=== PATIENT | female | born 1970 | race African-American/Black ===

== ENCOUNTER 2017-03-08 13:38 | Inpatient (IN) | payer OTHER ==
[2017-03-08] VITALS (8 sets, daily range): BP systolic 155–193; BP diastolic 77–106; PULSE 47–83; RESP 16–20; TEMP 97.3–98; O2SAT 94–100
[~2017-03-08] VITALS: Ht 172.7 cm; Wt 141.2 kg
[~2017-03-08 13:38] MED LIST: ALLO100T PO; CHLO25CA2 PO; FERR1TAB36 PO; K-TA10TA PO; MULTTAB67 PO; POTA10PO PO; PROT40TA PO; VITA1000 PO
[2017-03-08] MEDS ORDERED: SODIUM CHLOR 0.9% 1000 ML INJ 1,000 ML IV SCH (14:48)
--- NOTE | 2017-03-08 14:59 | PD ---
HPI Chief Complaint: Abdominal Pain Time Seen by Provider: 14:52 Travel History International Travel<30 days: No Contact w/Intl Traveler<30days: No Traveled to known affect area: No History of Present Illness HPI 46-year-old female with history of previous hernia surgeries, presents to the ER today for 2 days history of epigastric and left lower quadrant abdominal pains with nausea, chills, vomiting, and diarrhea. Pain is currently rated at 10 out of 10. She states that it started after eating a piece of chicken from [facility]. She does not reveal any sick contacts. Modifying Factors: None Associated Signs & Symptoms: Nausea, chills, vomiting, diarrhea, abdominal pain Risk Factors: None PFSH Past Medical History Anemia: Yes Cancer: No Cardiovascular Problems: Yes (HTN) Diabetes: No Diminished Hearing: No Endocrine: No Gastrointestinal Disorders: Yes (GERD, N/V DURING MENSES) Gout: Yes Genitourinary: No Hepatitis: No Hiatal Hernia: No Hypertension: Yes Immune Disorder: No Musculoskeletal: Yes (GOUT) Neurologic: No Psychiatric: No Reproductive: No Respiratory: Yes (ASTHMA) Thyroid Disease: No ?: Not : 5 Para: 5 Ovarian Cysts: Yes (r ovary removed) Tubal Ligation: Yes Past Surgical History Abdominal Surgery: Yes (HERNIA REPAIR X 2, GASTRIC SLEEVE) AICD: No Gynecologic Surgery: Yes (OOPHORECTOMY R OVARY, TUBAL LIGATION) Joint Replacement: No Pacemaker: No Thoracic Surgery: Yes ("DUCTS CLEANED OUT" EMILY BREASTS D/T MASTITIS ) Other Surgery: Yes Social History Alcohol Use: No Tobacco Use: No Substance Use: No Allergies-Medications (Allergen,Severity, Reaction): Coded Allergies: Mobic (Unverified Allergy, Intermediate, ITCHING, 03/08/17) АННА Inhibitors (Verified Allergy, Unknown, Swelling, 03/08/17) Percocet (Unverified Adverse Reaction, Intermediate, HALLUCINATIONS, ) Reported Meds & Prescriptions Reported Meds & Active Scripts Active Reported [Htn] 1 Tab PO DIRECTED Ferrous Sulfate DR (Ferrous Sulfate) 324 Mg Tabdr 324 Mg PO BID Protonix (Pantoprazole Sodium) 40 Mg Tab 40 Mg PO DAILY Multiple Vitamin 1 Tab 1 Tab PO DAILY Vitamin D-1000 (Cholecalciferol) 1,000 Unit Tab 1,000 Units PO DAILY Allopurinol 100 Mg Tab 100 Mg PO BID Review of Systems Except as stated in HPI: all other systems reviewed are Neg Physical Exam Narrative GENERAL: Well-developed obese middle age -[place] female patient currently in mild distress. SKIN: Focused skin assessment warm/dry. HEAD: Atraumatic. Normocephalic. EYES: Pupils equal and round. No scleral icterus. No injection or drainage. ENT: No nasal bleeding or discharge. Mucous membranes pink and moist. NECK: Trachea midline. No JVD. CARDIOVASCULAR: Regular rate and rhythm. No murmur appreciated. RESPIRATORY: No accessory muscle use. Clear to auscultation. Breath sounds equal bilaterally. GASTROINTESTINAL: Abdomen soft, epigastric and left lower quadrant tenderness without guarding or rebound, obese, nondistended. Hepatic and splenic margins not palpable. MUSCULOSKELETAL: No obvious deformities. No clubbing. No cyanosis. No edema. NEUROLOGICAL: Awake and alert. No obvious cranial nerve deficits. Motor grossly within normal limits. Normal speech. PSYCHIATRIC: Appropriate mood and affect; insight and judgment normal. Data Data Last Documented VS Vital Signs Date Time Temp Pulse Resp B/P Pulse Ox O2 Delivery O2 Flow Rate FiO2 03/08/17 15:34 52 16 155/96 98 Room Air 03/08/17 13:41 98.0 Orders Complete Blood Count With Diff (03/08/17 14:48) Comprehensive Metabolic Panel (03/08/17 14:48) Lipase (03/08/17 14:48) Urinalysis - C+S If Indicated (03/08/17 14:48) Iv Access Insert/Monitor (03/08/17 14:48) Ecg Monitoring (03/08/17 14:48) Oximetry (03/08/17 14:48) Ondansetron Inj (Zofran Inj) (03/08/17 15:00) Sodium Chlor 0.9% 1000 Ml Inj (Ns 1000 M (03/08/17 14:48) Sodium Chloride 0.9% Flush (Ns Flush) (03/08/17 15:00) Electrocardiogram (03/08/17 14:53) Ct Abd/Pel W Iv Contrast(Rout) (03/08/17 14:53) Hydromorphone Pf Inj (Dilaudid Pf Inj) (03/08/17 15:00) Iohexol 350 Inj (Omnipaque 350 Inj) (03/08/17 16:24) Hydromorphone Pf Inj (Dilaudid Pf Inj) (03/08/17 17:45) Labs Laboratory Tests Test 03/08/17 15:00 White Blood Count 9.6 TH/MM3 Red Blood Count 4.89 MIL/MM3 Hemoglobin 11.7 GM/DL Hematocrit 37.7 % Mean Corpuscular Volume 77.1 FL Mean Corpuscular Hemoglobin 23.9 PG Mean Corpuscular Hemoglobin 31.1 % Concent Red Cell Distribution Width 19.7 % Platelet Count 431 TH/MM3 Mean Platelet Volume 8.1 FL Neutrophils (%) (Auto) 84.4 % Lymphocytes (%) (Auto) 9.8 % Monocytes (%) (Auto) 3.0 % Eosinophils (%) (Auto) 0.5 % Basophils (%) (Auto) 2.3 % Neutrophils # (Auto) 8.2 TH/MM3 Lymphocytes # (Auto) 0.9 TH/MM3 Monocytes # (Auto) 0.3 TH/MM3 Eosinophils # (Auto) 0.0 TH/MM3 Basophils # (Auto) 0.2 TH/MM3 CBC Comment AUTO DIFF Differential Comment AUTO DIFF CONFIRMED Platelet Estimate NORMAL Platelet Morphology Comment NORMAL Target Cells 1+ Ovalocytes 1+ Sodium Level 139 MEQ/L Potassium Level 4.4 MEQ/L Chloride Level 104 MEQ/L Carbon Dioxide Level 26.7 MEQ/L Anion Gap 8 MEQ/L Blood Urea Nitrogen 9 MG/DL Creatinine 0.74 MG/DL Estimat Glomerular Filtration 102 ML/MIN Rate Random Glucose 99 MG/DL Calcium Level 9.6 MG/DL Total Bilirubin 0.4 MG/DL Aspartate Amino Transf 25 U/L (AST/SGOT) Alanine Aminotransferase 13 U/L (ALT/SGPT) Alkaline Phosphatase 84 U/L Total Protein 8.5 GM/DL Albumin 3.1 GM/DL Lipase 71 U/L [facility] Medical Decision Making Medical Screen Exam Complete: Yes Emergency Medical Condition: Yes Medical Record Reviewed: Yes Interpretation(s) EKG shows sinus bradycardia rate of 46 bpm with no signs of acute ST-T changes. Laboratory Tests Test 03/08/17 15:00 Mean Corpuscular Volume 77.1 FL (80.0-100.0) Mean Corpuscular Hemoglobin 23.9 PG (27.0-34.0) Mean Corpuscular Hemoglobin 31.1 % Concent (32.0-36.0) Red Cell Distribution Width 19.7 % (11.6-17.2) Neutrophils (%) (Auto) 84.4 % (16.0-70.0) Basophils (%) (Auto) 2.3 % (0.0-2.0) Neutrophils # (Auto) 8.2 TH/MM3 (1.8-7.7) Lymphocytes # (Auto) 0.9 TH/MM3 (1.0-4.8) Target Cells 1+ (NORMAL) Ovalocytes 1+ (NORMAL) Total Protein 8.5 GM/DL (6.4-8.2) Albumin 3.1 GM/DL (3.4-5.0) Lipase 71 U/L (73-393) Last 24 hours Impressions Abdomen/Pelvis CT 03/08/17 2263 Signed Impressions: Service Date/Time: Thursday, March 08, 2017 16:09 - CONCLUSION: Small bowel obstruction which is probably partial not present on the prior examination. Ezio Ortiz MD Differential Diagnosis Nausea, vomiting, diarrhea, chillsgastroenteritis versus obstruction versus dehydration versus metabolic issues versus pancreatitis versus other acute intra -abdominal processes Narrative Course Patient's heart rate slows down to the 40s intermittently. However, she does not appear to be symptomatic during these episodes. Her abdomen is tender to palpation of the epigastrium and left lower quadrant. She has required multiple doses of pain medications. CAT scan shows a partial small bowel obstruction. At this point, my plan would be to admit her as an observation for further evaluation. Case was discussed with Dr. Oakley for admission. Diagnosis Primary Impression: Small bowel obstruction Additional Impression: Bradycardia Admitting Information Admitting Physician Requests: Admit Adali Figueroa MD Mar 08, 2017 14:59
[2017-03-08] MEDS ORDERED: SODIUM CHLORIDE 0.9% FLUSH 10 ML FLUSH IV FLUSH PRN ×2 (15:00→18:45)
[2017-03-08] MEDS ORDERED: ONDANSETRON HCL 4 MG/2 ML VIAL IVP ONE (15:00)
[2017-03-08] MEDS ORDERED: HYDROmorphone HCL PF 1 MG/ML VIAL IV PUSH ONE ×2 (15:00→17:45)
[2017-03-08] MEDS ORDERED: FERR324T4 PO (15:20)
[2017-03-08] MEDS ORDERED: AMAN100T PO (15:20)
[2017-03-08] MEDS ORDERED: HTN PO (15:21)
[2017-03-08 15:27] LABS: AUTOMATED NEUTROPHIL # 8.2 TH/MM3 (1.8-7.7); BASOPHIL # 0.2 TH/MM3 (0-0.2); BASOPHIL % 2.3 % (0.0-2.0); EOSINOPHIL % 0.5 % (0.0-4.0); HEMATOCRIT 37.7 % (35.0-46.0); LYMPH % 9.8 % (9.0-44.0); LYMPHOCYTE # 0.9 TH/MM3 (1.0-4.8); MEAN CELL VOLUME 77.1 FL (80.0-100.0); MEAN CORPUSCULAR HEMOGLOBIN 23.9 PG (27.0-34.0); MEAN CORPUSCULAR HGB CONC 31.1 % (32.0-36.0); NEUT % 84.4 % (16.0-70.0); PLATELET COUNT 431 TH/MM3 (150-450); RED BLOOD COUNT 4.89 MIL/MM3 (4.00-5.30); RED CELL DISTRIBUTION WIDTH 19.7 % (11.6-17.2); WHITE BLOOD COUNT 9.6 TH/MM3 (4.0-11.0)
[2017-03-08 15:37] LABS: CHLORIDE 104 MEQ/L (98-107); SODIUM (NA) 139 MEQ/L (136-145)
[2017-03-08 15:40] LABS: ANION GAP 8 MEQ/L (5-15); BICARBONATE 26.7 MEQ/L (21.0-32.0); BLOOD UREA NITROGEN 9 MG/DL (7-18)
[2017-03-08 15:43] LABS: ALT (GPT) 13 U/L (10-53); AST (GOT) 25 U/L (15-37); GLOMERULAR FILTRATION RATE 102 ML/MIN (>89); POTASSIUM 4.4 MEQ/L (3.5-5.1)
[2017-03-08 15:45] LABS: TOTAL BILIRUBIN ADULT 0.4 MG/DL (0.2-1.0)
[2017-03-08 15:46] LABS: ALKALINE PHOSPHATASE 84 U/L (45-117)
[2017-03-08 15:47] LABS: HEMO FLAGS AUTO DIFF
[2017-03-08] MEDS ORDERED: IOHEXOL 350 MG/ML 10 ML VIAL (for RAD DIAG) IV ONE (16:24)
[2017-03-08 16:25] LABS: OVALOCYTES 1+ (NORMAL); PLATELET ESTIMATE SMEAR NORMAL (NORMAL); PLATELET MORPHOLOGY NORMAL (NORMAL); SCAN/DIFF AUTO DIFF CONFIRMED; TARGET CELLS 1+ (NORMAL)
--- NOTE | 2017-03-08 16:45 | RADRPT ---
EXAM DATE/TIME: 03/08/2017 16:09 [facility] COMPARISON: CT ABDOMEN & PELVIS W CONTRAST, June 19, 2016, 23:13. INDICATIONS : Left sided abdomen pain with nausea and vomiting. IV CONTRAST: 95 cc Omnipaque 350 (iohexol) IV ORAL CONTRAST: No oral contrast ingested. RADIATION DOSE: 22.38 CTDIvol (mGy) MEDICAL HISTORY : Hypertension. SURGICAL HISTORY : Tubal ligation. Hernia repair. Right oopherectomy. ENCOUNTER: Initial ACUITY: 1 day PAIN SCALE: 3/10 LOCATION: Left abdomen TECHNIQUE: Volumetric scanning of the abdomen and pelvis was performed. Using automated exposure control and ad justment of the mA and/or kV according to patient size, radiation dose was kept as low as reasonably achievable to obtain optimal diagnostic quality images. DICOM format image data is available electro nically for review and comparison. FINDINGS: CT Abdomen: The liver, spleen, pancreas, kidneys, adrenals are unremarkable. There is no evidence for any appreciable pathological adenopathy. Tiny fluid is present in the anterior perihepatic space. T here are multiple distended loops of small bowel on the left side of the abdomen not present previous ly and distal jejunal loops and ileal loops are decompressed characteristic of small bowel obstructio n. Multiple simple cysts are present in the kidneys the largest on the right measures 2.[address] pelvis: There is no evidence for mass, abscess formation, or any significant adenopathy within the pelvis. There is slight nonspecific thickening of the endometrial stripe ostomy site in the mesial f luid. CONCLUSION: Small bowel obstruction which is probably partial not present on the prior examulysses Ortiz MD on March 08, 2017 at 16:40 Board Certified Radiologist. This report was verified electronically.
[2017-03-08 18:09] LABS: BLOOD, URINE NEG (NEG); GLUCOSE,URINE NEG (NEG); KETONE, URINE 40 mg/dL (NEG); NITRITE,URINE NEG (NEG); PH, URINE 6.5 (5.0-8.5)
[2017-03-08 18:19] LABS: METHOD OF COLLECTION VOIDED; URINE COLOR YELLOW (YELLW/STRAW)
[2017-03-08 18:20] LABS: COMMENT (UR) CULT NOT INDICATED; CULTURE IF INDICATED CULT NOT INDICATED; MUCUS URINE RARE /lpf (OCC); SQUAMOUS EPITHELIAL CELL URINE 0-2 /hpf (0-5); WBC, URINE 0-2 /hpf (0-5)
[2017-03-08] MEDS ORDERED: NALOXONE HCL 0.4 MG/ML AMP IV PRN (18:45)
[2017-03-08] MEDS ORDERED: BISACODYL 10 MG SUPP RECTAL PRN (18:45)
[2017-03-08] MEDS ORDERED: SENNOSIDES 8.6 MG TAB PO PRN (18:45)
[2017-03-08] MEDS ORDERED: MAGNESIUM HYDROXIDE SUSP 30 ML CUP PO PRN (18:45)
[2017-03-08] MEDS ORDERED: AMLO2.5T PO (18:45)
[2017-03-08] MEDS ORDERED: cloNIDine HCL 0.1 MG TAB PO PRN (18:45)
[2017-03-08] MEDS ORDERED: LACTULOSE SYRUP 20 GM/30 ML CUP PO PRN (18:45)
--- NOTE | 2017-03-08 18:59 | HHI.HP ---
HPI Service [facility] Hospitalists Primary Care Physician Castro Hernandez MD Admission Diagnosis small bowel obstruction/bradycardia Chief Complaint: 2days of abdominal pain nausea and vomit Travel History International Travel<30 Days: No Contact w/Intl Traveler <30 Da: No Traveled to Known Affected Are: No History of Present Illness 46 y/o black female presents to er with 2 days progressive abdominal pain with constant nausea and vomit ,has been unable to keep anything down,patient did have small piece of chicken before episodes and did have sleve procedure done few years ago. In er had CT scan which showed small bowel partial obstruction will admit to observation pain and nausea control. Review of Systems Gastrointestinal: COMPLAINS OF: Abdominal pain, GERD, Nausea, Vomiting Past Family Social History Past Medical History hypertension,gout gerd Past Surgical History gastric sleve few years ago Reported Medications norvasc unsure of dose ,allopurinol ,protonix Allergies: Coded Allergies: Mobic (Unverified Allergy, Intermediate, ITCHING, 03/08/17) АННА Inhibitors (Verified Allergy, Unknown, Swelling, 03/08/17) Percocet (Unverified Adverse Reaction, Intermediate, HALLUCINATIONS, ) Social History NS,ND Physical Exam Vital Signs Vital Signs Date Time Temp Pulse Resp B/P Pulse Ox O2 Delivery O2 Flow Rate FiO2 03/08/17 17:45 47 16 193/80 100 Room Air 03/08/17 15:34 52 16 155/96 98 Room Air 03/08/17 15:02 100 Room Air 03/08/17 13:41 98.0 61 20 165/106 100 Physical Exam GENERAL: This is a well-nourished, well-developed patient, in no apparent distress. SKIN: No rashes, ecchymoses or lesions. Cool and dry. HEAD: Atraumatic. Normocephalic. No temporal or scalp tenderness. EYES: Pupils equal round and reactive. Extraocular motions intact. No scleral icterus. No injection or drainage. ENT: Nose without bleeding, purulent drainage or septal hematoma. Throat without erythema, tonsillar hypertrophy or exudate. Uvula midline. Airway patent. NECK: Trachea midline. No JVD or lymphadenopathy. Supple, nontender, no meningeal signs. CARDIOVASCULAR: Regular rate and rhythm without murmurs, gallops, or rubs. RESPIRATORY: Clear to auscultation. Breath sounds equal bilaterally. No wheezes , rales, or rhonchi. GASTROINTESTINAL: Abdomen tender rt and left upper and lower quadrants, nondistended. No hepato-splenomegaly, or palpable masses. No guarding. MUSCULOSKELETAL: Extremities without clubbing, cyanosis, or edema. No joint tenderness, effusion, or edema noted. No calf tenderness. Negative Homans sign bilaterally. NEUROLOGICAL: Awake and alert. Cranial nerves II through XII intact. Motor and sensory grossly within normal limits. Five out of 5 muscle strength in all muscle groups. Normal speech. Laboratory Last 24 hours Impressions Abdomen/Pelvis CT 03/08/17 1453 Signed Impressions: Service Date/Time: Wednesday, March 08, 2017 16:09 - CONCLUSION: Small bowel obstruction which is probably partial not present on the prior examination. Ezio Ortiz MD Laboratory Tests Test 03/08/17 03/08/17 15:00 17:40 White Blood Count 9.6 Red Blood Count 4.89 Hemoglobin 11.7 Hematocrit 37.7 Mean Corpuscular Volume 77.1 Mean Corpuscular Hemoglobin 23.9 Mean Corpuscular Hemoglobin 31.1 Concent Red Cell Distribution Width 19.7 Platelet Count 431 Mean Platelet Volume 8.1 Neutrophils (%) (Auto) 84.4 Lymphocytes (%) (Auto) 9.8 Monocytes (%) (Auto) 3.0 Eosinophils (%) (Auto) 0.5 Basophils (%) (Auto) 2.3 Neutrophils # (Auto) 8.2 Lymphocytes # (Auto) 0.9 Monocytes # (Auto) 0.3 Eosinophils # (Auto) 0.0 Basophils # (Auto) 0.2 CBC Comment AUTO DIFF Differential Comment AUTO DIFF CONFIRMED Platelet Estimate NORMAL Platelet Morphology Comment NORMAL Target Cells 1+ Ovalocytes 1+ Sodium Level 139 Potassium Level 4.4 Chloride Level 104 Carbon Dioxide Level 26.7 Anion Gap 8 Blood Urea Nitrogen 9 Creatinine 0.74 Estimat Glomerular Filtration 102 Rate Random Glucose 99 Calcium Level 9.6 Total Bilirubin 0.4 Aspartate Amino Transf 25 (AST/SGOT) Alanine Aminotransferase 13 (ALT/SGPT) Alkaline Phosphatase 84 Total Protein 8.5 Albumin 3.1 Lipase 71 Urine Collection Type VOIDED Urine Color YELLOW Urine Turbidity CLEAR Urine pH 6.5 Urine Specific [place] GREATER THAN 1.035 Urine Protein NEG Urine Glucose (UA) NEG Urine Ketones 40 Urine Occult Blood NEG Urine Nitrite NEG Urine Bilirubin NEG Urine Leukocyte Esterase NEG Urine WBC 0-2 Urine Squamous Epithelial 0-2 Cells Urine Mucus RARE Microscopic Urinalysis Comment CULT NOT INDICATED Result Diagram: 03/08/17 1500 03/08/17 1500 Imaging Last 24 hours Impressions Abdomen/Pelvis CT 03/08/17 1453 Signed Impressions: Service Date/Time: Wednesday, March 08, 2017 16:09 - CONCLUSION: Small bowel obstruction which is probably partial not present on the prior examination. Ezio Ortiz MD Course in er started on pain medications Assessment and Plan Problem List: (1) Small bowel obstruction Status: Acute Plan: IV fluid ,pain med,zofran protonix IV NPO (2) Bradycardia Status: Acute Plan: patient is slowing bradycardia will place on monitor for now (3) Hypertension Status: Chronic Plan: on norvasc with allergy to анна will use prn clonidine Assessment and Plan as above re access in am Code Status full Discussed Condition With patient Drake Martínez MD Mar 08, 2017 18:59
[2017-03-08] MEDS: SODIUM CHLOR 0.45% 1000 ML INJ 1,000 ML IV SCH (19:19)
[2017-03-08] MEDS: PANTOPRAZOLE SODIUM 40 MG VIAL IV PUSH SCH (19:20)
[2017-03-08] MEDS ORDERED: AMIL5 PO (20:40)
[2017-03-08] MEDS ORDERED: CHLO25TA2 PO (20:42)
[2017-03-08] MEDS: SODIUM CHLORIDE 0.9% FLUSH 10 ML FLUSH IV FLUSH SCH (20:52)
[2017-03-08] MEDS: FERROUS SULFATE 325 MG (65 MG ELEMENTAL IRON) TAB PO SCH (20:52)
[2017-03-08] MEDS: ALLOPURINOL 100 MG TAB PO SCH (21:06)
[2017-03-08] MEDS: ONDANSETRON HCL 4 MG/2 ML VIAL IVP PRN (21:07)
[2017-03-08] MEDS: DOCUSATE SODIUM 50 MG/SENNA 8.6 MG TAB PO SCH (21:07)
[2017-03-08] MEDS: HYDROmorphone HCL PF 1 MG/ML VIAL IV PRN (21:07)
[2017-03-09] VITALS (8 sets, daily range): BP systolic 145–180; BP diastolic 70–110; PULSE 80–92; RESP 19–20; TEMP 96.3–98.1; O2SAT 94–98
[2017-03-09] MEDS: HYDROmorphone HCL PF 1 MG/ML VIAL IV PRN ×7 (00:13→20:58)
[2017-03-09] MEDS: SODIUM CHLORIDE 0.9% FLUSH 10 ML FLUSH IV FLUSH SCH ×2 (07:53→20:50)
[2017-03-09] MEDS: DOCUSATE SODIUM 50 MG/SENNA 8.6 MG TAB PO SCH ×2 (08:31→20:51)
[2017-03-09] MEDS: CHOLECALCIFEROL (VIT D3) 1000 UNIT TAB PO SCH (08:31)
[2017-03-09] MEDS: FERROUS SULFATE 325 MG (65 MG ELEMENTAL IRON) TAB PO SCH ×2 (08:31→20:50)
[2017-03-09] MEDS: amLODIPine BESYLATE 5 MG TAB PO SCH (08:31)
[2017-03-09] MEDS: MULTIVITAMIN TAB PO SCH (08:31)
[2017-03-09] MEDS: ALLOPURINOL 100 MG TAB PO SCH ×2 (08:31→20:51)
[2017-03-09] MEDS: SODIUM CHLOR 0.45% 1000 ML INJ 1,000 ML IV SCH ×2 (08:32→21:04)
--- NOTE | 2017-03-09 10:31 | HHI.PR ---
Subjective Remarks Patient admitted with partial SBO and has been NPO ,feels a little better today still requiring hydromorph and zofran on exam abdomen is a little softer will advance diet to full liquids as tolerated. Objective Vitals GENERAL: SKIN: Warm and dry. HEAD: Atraumatic. Normocephalic. EYES: Pupils equal and round. No scleral icterus. No injection or drainage. ENT: No nasal bleeding or discharge. Mucous membranes pink and moist. NECK: Trachea midline. No JVD. CARDIOVASCULAR: Regular rate and rhythm. RESPIRATORY: No accessory muscle use. Clear to auscultation. Breath sounds equal bilaterally. GASTROINTESTINAL: Abdomen soft, mild-tender, nondistended. Hepatic and splenic margins not palpable. MUSCULOSKELETAL: Extremities without clubbing, cyanosis, or edema. No obvious deformities. NEUROLOGICAL: Awake and alert. No obvious cranial nerve deficits. Motor grossly within normal limits. Five out of 5 muscle strength in the arms and legs. Normal speech. PSYCHIATRIC: Appropriate mood and affect; insight and judgment normal. Vital Signs Date Time Temp Pulse Resp B/P Pulse Ox O2 Delivery O2 Flow Rate FiO2 03/09/17 04:00 98.1 80 20 159/96 97 03/08/17 21:37 18 03/08/17 21:00 65 03/08/17 20:35 97.3 61 20 162/87 97 03/08/17 19:23 83 16 158/77 98 Room Air 03/08/17 17:45 47 16 193/80 100 Room Air 03/08/17 15:34 52 16 155/96 98 Room Air 03/08/17 15:02 100 Room Air 03/08/17 13:41 98.0 61 20 165/106 100 Result Diagram: 03/08/17 1500 03/08/17 1500 Imaging Last 24 hours Impressions Abdomen/Pelvis CT 03/08/17 9916 Signed Impressions: Service Date/Time: Wednesday, March 08, 2017 16:09 - CONCLUSION: Small bowel obstruction which is probably partial not present on the prior examination. Ezio Ortiz MD A/P Problem List: (1) Small bowel obstruction Status: Acute Plan: IV fluid ,pain med,zofran protonix IV will advabnce to full liquids (2) Bradycardia Status: Acute Plan: patient is slowing bradycardia will place on monitor stable at present (3) Hypertension Status: Chronic Plan: on norvasc with allergy to paulino will use prn clonidine Assessment and Plan as above re check later Drake Martínez MD Mar 09, 2017 10:31
--- NOTE | 2017-03-09 17:44 | RADRPT ---
EXAM DATE/TIME: 03/09/2017 17:21 [facility] COMPARISON: No previous studies available for comparison. INDICATIONS : Distention. MEDICAL HISTORY : Hypertension. SURGICAL HISTORY : Tubal ligation. Hernia repair. Right oopherectomy. ENCOUNTER: Subsequent ACUITY: 2 days PAIN SCORE: 4/10 LOCATION: Abdomen, all quadrants. FINDINGS: Supine view of the abdomen was performed. The abdominal bowel gas pattern is normal. No abnormal ma sses, calcifications, or organomegaly is seen. The osseous structures are unremarkable. CONCLUSION: Normal examination. Anthony Lobato MD on March 09, 2017 at 17:42 Board Certified Radiologist. This report was verified electronically.
--- NOTE | 2017-03-09 19:58 | EKG ---
Date Performed: 03/08/2017 Time Performed: 15:00:29 PTAGE: 46 years EKG: SINUS BRADYCARDIA BORDERLINE ECG PREVIOUS TRACING : 08/10/2016 09.44 Since previous tracing, no significant change noted DOCTOR: Juan C Clayton Interpretating Date/Time 03/09/2017 19:57:02
[2017-03-09] MEDS: PANTOPRAZOLE SODIUM 40 MG VIAL IV PUSH SCH (20:50)
[2017-03-09] MEDS ORDERED: SIMETHICONE 125 MG CHEWABLE TAB PO PRN (23:15)
[2017-03-10] VITALS: BP 161/99; PULSE 85; RESP 20; TEMP 98.4; O2SAT 98
[2017-03-10] MEDS: HYDROmorphone HCL PF 1 MG/ML VIAL IV PRN ×5 (00:24→15:43)
[2017-03-10 04:00] VITALS: BP 143/89; PULSE 84; RESP 20; TEMP 97.4; O2SAT 98
[2017-03-10 06:18] LABS: ANION GAP 7 MEQ/L (5-15); BICARBONATE 28.6 MEQ/L (21.0-32.0); BLOOD UREA NITROGEN 10 MG/DL (7-18); CHLORIDE 101 MEQ/L (98-107); GLOMERULAR FILTRATION RATE 140 ML/MIN (>89); POTASSIUM 3.3 MEQ/L (3.5-5.1); SODIUM (NA) 137 MEQ/L (136-145)
[2017-03-10 07:00] VITALS: PULSE 91
[2017-03-10 08:00] VITALS: BP 115/95; PULSE 94; RESP 20; TEMP 97.6; O2SAT 95
[2017-03-10] MEDS: SODIUM CHLORIDE 0.9% FLUSH 10 ML FLUSH IV FLUSH SCH (09:00)
[2017-03-10] MEDS: DOCUSATE SODIUM 50 MG/SENNA 8.6 MG TAB PO SCH ×2 (09:28→21:00)
[2017-03-10] MEDS: FERROUS SULFATE 325 MG (65 MG ELEMENTAL IRON) TAB PO SCH ×2 (09:28→21:00)
[2017-03-10] MEDS: ALLOPURINOL 100 MG TAB PO SCH ×2 (09:28→21:00)
[2017-03-10] MEDS: CHOLECALCIFEROL (VIT D3) 1000 UNIT TAB PO SCH (09:28)
[2017-03-10] MEDS: amLODIPine BESYLATE 5 MG TAB PO SCH (09:28)
[2017-03-10] MEDS: MULTIVITAMIN TAB PO SCH (09:28)
[2017-03-10] MEDS: SODIUM CHLOR 0.45% 1000 ML INJ 1,000 ML IV SCH (09:32)
[2017-03-10] MEDS ORDERED: DIATRIZOATE MEGLUM/DIATRIZOATE SOD 9 ML CUP PO ONE (10:15)
[2017-03-10] MEDS ORDERED: 1/2 NS + KCL 20 MEQ INJ 1,000 ML IV SCH (10:15)
--- NOTE | 2017-03-10 10:17 | HHI.PR ---
Subjective Remarks Patient admitted with SBO and still has not passed any gas with abdominal pain and nausea has problems tolerating liquids KUB was unremarkable will recheck CT abdomen and will consult Dr. Tyler general surgery for evaluation. Objective Vitals GENERAL: SKIN: Warm and dry. HEAD: Atraumatic. Normocephalic. EYES: Pupils equal and round. No scleral icterus. No injection or drainage. ENT: No nasal bleeding or discharge. Mucous membranes pink and moist. NECK: Trachea midline. No JVD. CARDIOVASCULAR: Regular rate and rhythm. RESPIRATORY: No accessory muscle use. Clear to auscultation. Breath sounds equal bilaterally. GASTROINTESTINAL: Abdomen soft, tender, nondistended. Hepatic and splenic margins not palpable. MUSCULOSKELETAL: Extremities without clubbing, cyanosis, or edema. No obvious deformities. NEUROLOGICAL: Awake and alert. No obvious cranial nerve deficits. Motor grossly within normal limits. Five out of 5 muscle strength in the arms and legs. Normal speech. PSYCHIATRIC: Appropriate mood and affect; insight and judgment normal. Vital Signs Date Time Temp Pulse Resp B/P Pulse Ox O2 Delivery O2 Flow Rate FiO2 03/10/17 08:01 18 03/10/17 08:00 97.6 94 20 115/95 95 03/10/17 04:00 97.4 84 20 143/89 98 03/10/17 00:00 98.4 85 20 161/99 98 03/09/17 23:00 92 03/09/17 23:00 86 20 148/98 96 03/09/17 20:00 96.9 91 20 166/110 95 03/09/17 18:46 03/09/17 16:15 96.3 87 19 158/70 98 03/09/17 15:21 92 03/09/17 12:07 97.8 87 19 145/97 95 03/09/17 11:14 03/09/17 03/09/17 03/10/17 15:00 23:00 07:00 Intake Total 700 ml 240 ml Balance 700 ml 240 ml Intake Oral 240 ml IV Total 700 ml # Voids 4 Result Diagram: 03/08/17 1500 03/10/17 0545 Imaging Last 24 hours Impressions Abdomen/Pelvis CT 03/08/17 1453 Signed Impressions: Service Date/Time: Wednesday, March 08, 2017 16:09 - CONCLUSION: Small bowel obstruction which is probably partial not present on the prior examination. Ezio Ortiz MD A/P Problem List: (1) Small bowel obstruction Status: Acute Plan: IV fluid ,pain med,zofran protonix IV problems with full liquids KUB negative but still no gas and continues with abdinal pain and nausea will repeat CT abdomen and consult general surgery ,Patient did have sleve procedure in past. (2) Bradycardia Status: Acute Plan: patient is slowing bradycardia will place on monitor stable at present (3) Hypertension Status: Chronic Plan: on norvasc with allergy to paulino will use prn clonidine Assessment and Plan as above re check later Drake Martínez MD Mar 10, 2017 10:17
[2017-03-10] MEDS ORDERED: IOHEXOL 350 MG/ML 10 ML VIAL (for RAD DIAG) IV ONE (11:04)
[2017-03-10] MEDS: ONDANSETRON HCL 4 MG/2 ML VIAL IVP PRN (11:23)
--- NOTE | 2017-03-10 11:25 | RADRPT ---
EXAM DATE/TIME: 03/10/2017 10:36 [facility] COMPARISON: CT ABDOMEN & PELVIS W CONTRAST, March 08, 2017, 16:09. INDICATIONS : Status of small bowel obstruction. IV CONTRAST: 95 cc Omnipaque 350 (iohexol) IV ORAL CONTRAST: No oral contrast ingested. RADIATION DOSE: 22.36 CTDIvol (mGy) MEDICAL HISTORY : Hypertension. Gastroesophageal reflux disease. SURGICAL HISTORY : Gastric bypass. Tubal ligation.Right oopherectomy. Hernia repair. ENCOUNTER: Subsequent ACUITY: 3 days PAIN SCALE: 6/10 LOCATION: abdomen/pelvis TECHNIQUE: Volumetric scanning of the abdomen and pelvis was performed. Using automated exposure control and ad justment of the mA and/or kV according to patient size, radiation dose was kept as low as reasonably achievable to obtain optimal diagnostic quality images. DICOM format image data is available electro nically for review and comparison. FINDINGS: LOWER LUNGS: Bibasilar atelectasis which is new from the prior study. LIVER: Homogeneous density without lesion. There is no dilation of the biliary tree. Multiple small gallst ones are seen layering within the gallbladder. These are highlighted secondary to vicarious excretion of contrast into the gallbladder. They do not appear calcified. The gallbladder is at the upper rang e of normal in terms of size. No gallbladder wall thickening appreciated. SPLEEN: Normal size without lesion. PANCREAS: Within normal limits. KIDNEYS: Normal in size and shape. There is no mass, stone or hydronephrosis. Small bilateral cortical renal cysts which were previously described. These are stable. ADRENAL GLANDS: Within normal limits. VASCULAR: There is no aortic aneurysm. BOWEL/MESENTERY: Worsening dilatation of the small bowel. Small bowel reaches a maximum diameter of 3.9 cm. There are loops of nondilated small bowel within the anterior mid peritoneal cavity. These are projecting just posterior to a prior ventral hernia repair. A caliber change occurs just proximal to the small bowel loops. A small volume of ascites. No free air. ABDOMINAL WALL: Within normal limits. RETROPERITONEUM: There is no lymphadenopathy. BLADDER: No wall thickening or mass. REPRODUCTIVE: Within normal limits. INGUINAL: There is no lymphadenopathy or hernia. MUSCULOSKELETAL: Within normal limits for patient age. CONCLUSION: 1. Worsening dilatation of the small bowel consistent with a distal small bowel obstruction. There is a caliber change associated with the small bowel within the anterior mid peritoneal cavity but witho ut obstructing etiology observed. 2. Small volume ascites. 3. Cholelithiasis. 4. Bibasilar atelectasis. 5. Prior ventral hernia repair without recurrent hernia. Amando Ross Jr., MD on March 10, 2017 at 11:18 Board Certified Radiologist. This report was verified electronically.
[2017-03-10] MEDS ORDERED: NEOSTIGMINE 3 MG/3 ML SYR IV ONE (12:00)
[2017-03-10] MEDS ORDERED: PROPOFOL 200 MG/20 ML AMP IV ONE (12:00)
[2017-03-10] MEDS ORDERED: LACTATED RINGER'S 1000 ML INJ 3,000 ML IV ONE (12:00)
[2017-03-10] MEDS ORDERED: ONDANSETRON HCL 4 MG/2 ML VIAL IV PUSH ONE (12:00)
[2017-03-10] MEDS ORDERED: PHENYLEPH/NS 1000 MCG/10 ML SYR IV ONE (12:00)
[2017-03-10 12:40] LABS: ALKALINE PHOSPHATASE 65 U/L (45-117); ALT (GPT) 10 U/L (10-53); AST (GOT) 12 U/L (15-37); TOTAL BILIRUBIN ADULT 0.3 MG/DL (0.2-1.0)
[2017-03-10 13:47] VITALS: BP 137/94; PULSE 95; RESP 18; TEMP 96.9; O2SAT 94
[2017-03-10 15:00] VITALS: PULSE 92
[2017-03-10] MEDS ORDERED: FAMOTIDINE 20 MG/2 ML VIAL ONE (17:27)
[2017-03-10] MEDS ORDERED: ceFAZolin 2 GM PREMIX 50 ML ONE (17:29)
[2017-03-10] MEDS ORDERED: ceFAZolin INJ 1,000 MG VIAL IV ONE (18:00)
[2017-03-10] MEDS ORDERED: BUPIVACAINE/EPINEPHRINE 0.5% PF 10 ML VIAL INFIL ONE (18:34)
[2017-03-10] MEDS ORDERED: MIDAZOLAM HCL 2 MG/2 ML VIAL ONE (19:05)
[2017-03-10] MEDS ORDERED: fentaNYL CITRATE 250 MCG/5 ML AMP ONE ×2 (19:05)
[2017-03-10] MEDS ORDERED: ACETAMINOPHEN 1000 MG/100 ML VIAL IV ONE (21:08)
[2017-03-10] MEDS ORDERED: NALOXONE HCL 0.4 MG/ML AMP IV PRN (21:30)
[2017-03-10] MEDS ORDERED: Post-op Orders (for Pharmacy) MISC XX ONE (21:30)
[2017-03-10] MEDS ORDERED: diphenhydrAMINE HCL 25 MG CAP PO PRN (21:30)
[2017-03-10] MEDS: PCA - TOTAL MG MORPHINE DELIVERED PER SHIFT SCH (22:00)
[2017-03-10] MEDS: metroNIDAZOLE 500 MG INJ 100 ML IV SCH (22:00)
[2017-03-10] MEDS: SODIUM CHLOR 0.9% 1000 ML INJ 1,000 ML IV SCH (22:00)
--- NOTE | 2017-03-10 22:01 | RADRPT ---
EXAM DATE/TIME: 03/10/2017 21:33 [facility] COMPARISON: No previous studies available for comparison. INDICATIONS : Central line placement. MEDICAL HISTORY : Hypertension. SURGICAL HISTORY : Tubal ligation. Hernia repair. Right oopherectomy. ENCOUNTER: Initial ACUITY: 1 day PAIN SCORE: 0/10 LOCATION: Bilateral chest FINDINGS: Right jugular line tip overlies the expected location of the right atrium. There is patchy airspace d isease identified on the left with cardiomegaly. NG tube is present and the distal tip at the expecte d location of the esophagogastric junction/distal esophagus. CONCLUSION: Right jugular line and NG tube as above. Mando Mera MD on March 10, 2017 at 21:59 Board Certified Radiologist. This report was verified electronically.
[2017-03-10] MEDS ORDERED: *morphine SULFATE 8 MG/ML PERIprocedure ONLY ONE (22:11)
[2017-03-10] MEDS: PANTOPRAZOLE SODIUM 40 MG VIAL IV PUSH SCH (22:19)
[2017-03-10] MEDS: MORPHINE SULFATE 30 MG/30 ML PCA IV SCH (22:21)
--- NOTE | 2017-03-10 22:21 | MB ---
cc: MARIA D MESA M.D. DATE OF CONSULTATION 03/10/17 1970 HISTORY OF PRESENT ILLNESS This is a 46-year-old black lady with multiple abdominal surgeries who was admitted to [facility] two days prior with a complaint of abdominal pain, nausea and vomiting. The patient states the pain started a day prior to presentation. That was the last time she passed gas or had a bowel movement. Her CAT scan performed on admission reveals findings concerning for bowel obstruction. She was monitored without improvement. Repeat CAT scan today shows increased dilation of bowel. As a result, surgical consult was requested. The patient continues with abdominal pain, continues with arthritis. PAST MEDICAL HISTORY Gastroesophageal reflux disease PAST SURGICAL HISTORY 1. Sleeve gastrectomy 2. Oophorectomy 3. Multiple abdominal wall hernia repairs MEDICATIONS At home, can be obtained from medical records. ALLERGIES MOBIC АННА INHIBITORS PERCOCET. FAMILY HISTORY Noncontributory. SOCIAL HISTORY She does not smoke. PHYSICAL EXAMINATION GENERAL: She is laying in bed in no acute distress. HEENT: The pupils are equal and reactive. The trachea is midline. LUNGS: Respirations clear. CARDIOVASCULAR: Regular. GASTROINTESTINAL: Distended. Well-healed midline scar. No hernia palpated. positive tenderness in the left lower quadrant. MUSCULOSKELETAL: No deformities. NEUROLOGIC: Nonfocal. ASSESSMENT This is a patient with a bowel obstruction worsening, failed conservative management. PLAN Take the patient to the operating room for laparoscopy with lysis of adhesion, possible laparotomy, possible bowel resection. The risk and benefits are explained to the patient to include but not be exclusive to infection, bleeding, bowel injury, solid organ injury, technical aspects explained as well as [place] and postoperative course. The patient verbalized understanding. Consent was obtained. MD RIA Moreno/ /9:43 PM /10:14 PM
[2017-03-10] MEDS ORDERED: DO NOT ADM ANY ANTICOAGULANT DRUGS PRN (22:30)
[2017-03-10] MEDS ORDERED: NITROGLYCERIN 2% OINT 1 GM PACKET ONE (22:40)
[2017-03-10] MEDS ORDERED: LACTATED RINGER'S 1000 ML INJ 1,000 ML IV SCH (23:00)
[2017-03-10] MEDS ORDERED: NITROGLYCERIN 2% OINT 1 GM PACKET TOPICAL SCH (23:00)
[2017-03-10 23:16] LABS: CREATINE KINASE 34 U/L (26-192)
[2017-03-11] VITALS (9 sets, daily range): BP systolic 121–144; BP diastolic 60–77; PULSE 81–122; RESP 16–18; TEMP 97.8–99.3; O2SAT 92–96
[2017-03-11] MEDS ORDERED: NITROGLYCERIN 2% OINT 1 GM PACKET TOPICAL SCH (05:00)
[2017-03-11] MEDS: metroNIDAZOLE 500 MG INJ 100 ML IV SCH ×2 (05:52→14:00)
[2017-03-11] MEDS: NITROGLYCERIN 2% OINT 1 GM PACKET TOPICAL SCH ×4 (05:54→22:18)
[2017-03-11] MEDS: PCA - TOTAL MG MORPHINE DELIVERED PER SHIFT SCH ×3 (06:00→22:00)
--- NOTE | 2017-03-11 07:18 | MP ---
cc: LEN HILL DATE OF 1970 DATE OF OPERATION 03/10/2017 PREOPERATIVE DIAGNOSIS Small bowel obstruction. POSTOPERATIVE DIAGNOSIS Small bowel obstruction. PROCEDURE Laparoscopic lysis of adhesions, extensive, approximately 2 hours duration. SURGEON Len Hill MD ANESTHESIA General endotracheal anesthesia. ESTIMATED BLOOD LOSS Less than 50 cc. FINDINGS Extensive adhesions. The patient has old mesh in place with adherent bowel to the mesh. She had interloop adhesions as well as dilated bowel proximally. SPECIMEN None. COMPLICATIONS None. OPERATION The patient was brought to the operating room, placed on the operating table in supine position, bilateral sequential inflation devices placed on the lower extremities, general anesthesia instituted, Crain catheter placed, antibiotics initiated. The abdomen was prepped and draped sterilely. A point in the left upper quadrant was anesthetized with 0.25% Marcaine with epinephrine. Skin incision was made, a 5-mm OptiView port placed under direct vision, a pneumoperitoneum created. Under direct vision, a 5-mm right upper quadrant, a 5-mm right lower quadrant, a 5-mm left lower quadrant and a 5-mm left paramedian port was placed. Prior to placement of all ports the skin and peritoneum were anesthetized with 0.25% Marcaine with epinephrine. The patient was placed in Trendelenburg position, abdominal cavity inspected with findings as above. Attention was focused on adhesiolysis. Adhesions to the abdominal wall were first taken down using sharp dissection, meticulously done. The patient had dilated bowel that was identified intraperitoneal. There appeared to be bands of adhesions around the dilated bowel. Through sharp dissection as well as using the harmonic these adhesions was . The bowel was followed. The distal small bowel was decompressed but this bowel was densely adherent to intraabdominal mesh and the proximal bowel that was dilated appeared to go into this after release of adhesions proximally. It was felt that the obstructive point was released and so the operation was terminated. CO2 was released, all ports removed, all skin incisions closed with 4-0 Monocryl. The abdominal wall was cleaned and a sterile dressing placed. The patient was awakened and taken to the recovery room. MD RIA Moreno/CONG /9:46 PM /7:11 AM
[2017-03-11 07:23] LABS: BASOPHIL % 0.1 % (0.0-2.0); EOSINOPHIL % 0.1 % (0.0-4.0); HEMATOCRIT 31.4 % (35.0-46.0); HEMO FLAGS DIFF FINAL; LYMPHOCYTE # 0.6 TH/MM3 (1.0-4.8); MEAN CELL VOLUME 77.4 FL (80.0-100.0); MEAN CORPUSCULAR HEMOGLOBIN 24.9 PG (27.0-34.0); MEAN CORPUSCULAR HGB CONC 32.1 % (32.0-36.0); MONO % 8.8 % (0.0-8.0); PLATELET COUNT 378 TH/MM3 (150-450); RED BLOOD COUNT 4.06 MIL/MM3 (4.00-5.30); RED CELL DISTRIBUTION WIDTH 20.1 % (11.6-17.2); WHITE BLOOD COUNT 6.1 TH/MM3 (4.0-11.0)
[2017-03-11 07:40] LABS: ANION GAP 10 MEQ/L (5-15); BICARBONATE 26.3 MEQ/L (21.0-32.0); BLOOD UREA NITROGEN 8 MG/DL (7-18); CHLORIDE 103 MEQ/L (98-107); GLOMERULAR FILTRATION RATE 138 ML/MIN (>89); POTASSIUM 3.2 MEQ/L (3.5-5.1); SODIUM (NA) 139 MEQ/L (136-145)
[2017-03-11 07:47] LABS: CREATINE KINASE 40 U/L (26-192)
--- NOTE | 2017-03-11 07:54 | PD.CONS ---
HPI Service CV Consult Requested By Reason for Consult bradycardia Primary Care Physician aCstro Hernandez MD History of Present Illness Here with HTN admitted for nausea and vomiting and found to have SBO. She underwent laparoscopic surgery to relieve obstruction that was due to adhesions. EKG done on admission showed sinus bradycardia. Repeat ECG showed resolution of bradycardia and dynamic T wave change in the anterior leads. She denies any chest pain, shortness of breath or palpitations. Now she is in sinus tachycardia Review of Systems Consitutional: DENIES: Fatigue, Fever, Chills, Weight gain, Weight loss Eyes: DENIES: Amaurosis Fugax, Change in vision HEENT: DENIES: Lightheadedness, Change in hearing Respiratory: DENIES: See HPI, Cough, Snoring, Shortness of breath, Wheezing, Sputum production Cardiovascular: COMPLAINS OF: See HPI Gastrointestinal: DENIES: Nausea, Vomiting, Change in bowel habits, Reflux, Bloody stools, Melena Genitourinary: DENIES: Urinary incontinence, Difficulty voiding Integumentary: DENIES: Rash Neurologic: DENIES: Tingling or numbness, Memory problems, Poor Balance, Stroke symptoms Musculoskeletal: DENIES: Joint pain, Muscle pain, Limited range of motion, Back pain Psychiatric: DENIES: Anxiety, Depression, Sleep disturbances Hematologic: DENIES: Bruising tendencies, Bleeding tendencies Endocrine: DENIES: Weight gain, Weight loss, Thyroid disease Past Family Social History Allergies: Coded Allergies: Mobic (Unverified Allergy, Intermediate, ITCHING, 03/08/17) АННА Inhibitors (Verified Allergy, Unknown, Swelling, 03/08/17) Percocet (Unverified Adverse Reaction, Intermediate, HALLUCINATIONS, ) Past Medical History gout GERD Past Surgical History gastric sleeve few years ago Reported Medications Reported Meds & Active Scripts Active Reported Chlorthalidone 25 Mg Tab 25 Mg PO DAILY Amiloride (Amiloride HCl) 5 Mg Tab 5 Mg .ROUTE DAILY Ferrous Sulfate DR (Ferrous Sulfate) 324 Mg Tabdr 324 Mg PO BID Protonix (Pantoprazole Sodium) 40 Mg Tab 40 Mg PO DAILY Multiple Vitamin 1 Tab 1 Tab PO DAILY Vitamin D-1000 (Cholecalciferol) 1,000 Unit Tab 1,000 Units PO DAILY Allopurinol 100 Mg Tab 100 Mg PO BID Active Ordered Medications Current Medications Medications (Trade) Dose Ordered Sig/Patrice Route Start Time Stop Time Status Last Admin (Dilaudid Pf Inj) 0.5 mg Q3H PRN IV 03/08/17 18:45 03/10/17 15:43 (Aurora-Colace) 1 tab BID PO 03/08/17 21:00 03/10/17 09:28 (Milk Of Magnesia Liq) 30 ml Q12H PRN PO 03/08/17 18:45 (Senokot) 17.2 mg Q12H PRN PO 03/08/17 18:45 (Dulcolax Supp) 10 mg DAILY PRN RECTAL 03/08/17 18:45 (Lactulose Liq) 30 ml DAILY PRN PO 03/08/17 18:45 (Protonix Inj) 40 mg Q24H IV PUSH 03/08/17 20:00 03/10/17 22:19 (Catapres) 0.1 mg Q6H PRN PO 03/08/17 18:45 (Norvasc) 5 mg DAILY PO 03/09/17 09:00 03/10/17 09:28 (Zyloprim) 100 mg BID PO 03/08/17 21:00 03/10/17 09:28 (Vitamin D3) 1,000 units DAILY PO 03/09/17 09:00 03/10/17 09:28 (Ferrous Sulfate) 325 mg BID PO 03/08/17 21:00 03/10/17 09:28 (Theragran) 1 tab DAILY PO 03/09/17 09:00 03/10/17 09:28 Simethicone 125 mg 125 mg QID PRN PO 03/09/17 23:15 03/09/17 23:22 (NS 1000 ml Inj) 1,000 ml @ 100 mls/hr Q10H IV 03/10/17 22:00 03/10/17 22:00 (NS Flush) 2 ml UNSCH PRN IV FLUSH 03/10/17 21:30 (NS Flush) 2 ml BID IV FLUSH 03/11/17 09:00 (Zofran Inj) 4 mg Q4H PRN IV 03/10/17 21:30 Diphenhydramine HCl 25 mg 25 mg Q6H PRN PO 03/10/17 21:30 Cefazolin Sodium 1000 mg/Sodium Chloride 100 ml @ 200 mls/hr Q8H IV 03/11/17 01:00 03/11/17 17:29 03/11/17 02:49 (Flagyl 500 Mg Inj) 100 ml @ 200 mls/hr Q8H IV 03/10/17 22:00 03/11/17 14:29 03/11/17 05:52 (Narcan Inj) 0.4 mg UNSCH PRN IV 03/10/17 21:30 (Morphine 1 Mg/ ml COURTESY BOOTH CASHIER) 30 mg UNSCH IV 03/10/17 21:30 03/10/17 22:21 COURTESY BOOTH CASHIER Dosage Infused (Pha) 1 Q8HR .XX 03/10/17 22:00 03/11/17 06:00 (Lovenox Inj) 40 mg Q24H SQ 03/11/17 09:00 Miscellaneous Information ALL NURSING DEPARTME... UNSCH PRN .XX 03/10/17 22:30 03/11/17 22:29 (Nitroglycerin 2% Oint) 1 inch Q6H TOPICAL 03/11/17 05:00 03/11/17 17:01 03/11/17 05:54 Family History noncontributory Social History denies any alcohol, smoking or substance abuse Physical Exam Vital Signs Vital Signs Date Time Temp Pulse Resp B/P Pulse Ox O2 Delivery O2 Flow Rate FiO2 03/11/17 06:00 14 03/11/17 04:32 99.3 81 16 126/64 92 03/11/17 00:16 98.2 81 17 136/71 93 03/10/17 23:00 98.6 78 18 140/67 97 Nasal Cannula 2 03/10/17 22:45 79 17 135/65 96 Nasal Cannula 3 03/10/17 22:30 71 17 135/64 96 Nasal Cannula 3 03/10/17 22:21 14 03/10/17 22:15 86 26 146/72 98 Simple Mask 5 03/10/17 22:00 70 19 148/70 97 Simple Mask 5 03/10/17 22:00 14 03/10/17 21:45 77 23 149/70 96 Simple Mask 10 03/10/17 21:35 98.8 78 20 129/77 96 Simple Mask 10 03/10/17 15:00 92 03/10/17 13:47 96.9 95 18 137/94 94 03/10/17 11:50 18 03/10/17 08:00 97.6 94 20 115/95 95 Physical Exam GENERAL: Well-nourished, well-developed patient in no apparent distress. NECK: No JVD. No carotid bruit. CARDIOVASCULAR: tachycardic, regular rhythm. S1/S2 no murmur, rub, or gallop. RESPIRATORY: No accessory muscle use. Clear to auscultation. Breath sounds equal bilaterally. GASTROINTESTINAL: Abdomen soft, non-tender, nondistended. MUSCULOSKELETAL: Extremities without clubbing, cyanosis, or edema. Laboratory Laboratory Tests Test 03/10/17 03/11/17 22:32 05:50 Total Creatine Kinase 34 Troponin I LESS THAN 0.02 White Blood Count 6.1 Red Blood Count 4.06 Hemoglobin 10.1 Hematocrit 31.4 Mean Corpuscular Volume 77.4 Mean Corpuscular Hemoglobin 24.9 Mean Corpuscular Hemoglobin 32.1 Concent Red Cell Distribution Width 20.1 Platelet Count 378 Mean Platelet Volume 8.0 Neutrophils (%) (Auto) 81.0 Lymphocytes (%) (Auto) 10.0 Monocytes (%) (Auto) 8.8 Eosinophils (%) (Auto) 0.1 Basophils (%) (Auto) 0.1 Neutrophils # (Auto) 5.0 Lymphocytes # (Auto) 0.6 Monocytes # (Auto) 0.5 Eosinophils # (Auto) 0.0 Basophils # (Auto) 0.0 CBC Comment DIFF FINAL Differential Comment Result Diagram: 03/11/17 0550 03/10/17 0545 Assessment and Plan Problem List: (1) Bradycardia Assessment and Plan bradycardia resolved, she is now tachycardic. first troponin is negative, second set is pending. Tachycardia likely secondary to some underlying medical problem, she is anemic and hypokalemic Due to dynamic ECG changes should consider Lexiscan SPECT at some point. She looks too uncomfortable from her abdominal problems presently to undergo any stress testing replete K, with her recent surgery will defer to hospitalist/surgeon for best route of administration Ben Botello Mar 11, 2017 07:54
--- NOTE | 2017-03-11 08:35 | EKG ---
Date Performed: 03/11/2017 Time Performed: 06:48:54 PTAGE: 46 years EKG: Sinus tachycardia. Inferior infarct - age undetermined Ant/septal and lateral ST-T changes may be due to myocardial ischemia Abnormal ECG NO PREVIOUS TRACING DOCTOR: Anthony Caputo Interpretating Date/Time 03/11/2017 08:34:44
--- NOTE | 2017-03-11 08:54 | EKG ---
Date Performed: 03/10/2017 Time Performed: 22:17:59 PTAGE: 46 years EKG: Sinus rhythm MODERATE T-WAVE ABNORMALITY, CONSIDER ANTERIOR ISCHEMIA ABNORMAL ECG PREVIOUS TRACING : 03/08/2017 15.00 DOCTOR: Anthony Caputo Interpretating Date/Time 03/11/2017 08:53:32
[2017-03-11] MEDS: ALLOPURINOL 100 MG TAB PO SCH ×2 (09:14→22:17)
[2017-03-11] MEDS: MULTIVITAMIN TAB PO SCH (09:14)
[2017-03-11] MEDS: CHOLECALCIFEROL (VIT D3) 1000 UNIT TAB PO SCH (09:14)
[2017-03-11] MEDS: SODIUM CHLOR 0.9% 1000 ML INJ 1,000 ML IV SCH ×3 (09:14→22:18)
[2017-03-11] MEDS: ENOXAPARIN SODIUM 40 MG/0.4 ML SYRINGE SQ SCH (09:14)
[2017-03-11] MEDS: amLODIPine BESYLATE 5 MG TAB PO SCH (09:14)
[2017-03-11] MEDS: FERROUS SULFATE 325 MG (65 MG ELEMENTAL IRON) TAB PO SCH ×2 (09:14→22:16)
[2017-03-11] MEDS: DOCUSATE SODIUM 50 MG/SENNA 8.6 MG TAB PO SCH ×2 (09:14→22:17)
[2017-03-11] MEDS: SODIUM CHLORIDE 0.9% FLUSH 10 ML FLUSH IV FLUSH SCH ×2 (09:15→22:16)
--- NOTE | 2017-03-11 15:34 | HHI.PR ---
Subjective Remarks No new complaints. Pain is controlled. No flatus. Objective Vitals Vital Signs Date Time Temp Pulse Resp B/P Pulse Ox O2 Delivery O2 Flow Rate FiO2 03/11/17 12:00 98.3 113 18 121/60 94 03/11/17 10:42 96 Nasal Cannula 2.00 03/11/17 08:00 98.8 122 16 132/61 94 03/11/17 06:00 14 03/11/17 04:32 99.3 81 16 126/64 92 03/11/17 00:16 98.2 81 17 136/71 93 03/10/17 23:00 98.6 78 18 140/67 97 Nasal Cannula 2 03/10/17 22:45 79 17 135/65 96 Nasal Cannula 3 03/10/17 22:30 71 17 135/64 96 Nasal Cannula 3 03/10/17 22:21 14 03/10/17 22:15 86 26 146/72 98 Simple Mask 5 03/10/17 22:00 70 19 148/70 97 Simple Mask 5 03/10/17 22:00 14 03/10/17 21:45 77 23 149/70 96 Simple Mask 10 03/10/17 21:35 98.8 78 20 129/77 96 Simple Mask 10 03/10/17 03/10/17 03/11/17 14:59 22:59 06:59 Intake Total 4508 ml 1967 ml Output Total 175 ml 1910 ml Balance 4333 ml 57 ml Intake Oral 240 ml 967 ml IV Total 868 ml 1000 ml Other 3400 ml Output Urine Total 1910 ml Gastric Drainage Total 0 ml 0 ml Estimated Blood Loss 50 ml Other 125 ml # Voids 2 # Bowel Movements 0 Result Diagram: 03/11/17 0550 03/11/17 0550 Imaging Last Impressions Chest X-Ray 03/10/17 0000 Signed Impressions: Service Date/Time: Friday, March 10, 2017 21:33 - CONCLUSION: Right jugular line and NG tube as above. Mando Mera MD Abdomen/Pelvis CT 03/10/17 0000 Signed Impressions: Service Date/Time: Friday, March 10, 2017 10:36 - CONCLUSION: 1. Worsening dilatation of the small bowel consistent with a distal small bowel obstruction. There is a caliber change associated with the small bowel within the anterior mid peritoneal cavity but without obstructing etiology observed. 2. Small volume ascites. 3. Cholelithiasis. 4. Bibasilar atelectasis. 5. Prior ventral hernia repair without recurrent hernia. Amando Ross Jr., MD Abdomen X-Ray 03/09/17 0000 Signed Impressions: Service Date/Time: Thursday, March 09, 2017 17:21 - CONCLUSION: Normal examination. Anthony Lobato MD Objective Remarks GENERAL: This is a well-nourished, well-developed patient, in no apparent distress. CARDIOVASCULAR: Regular rate and rhythm without murmurs, gallops, or rubs. RESPIRATORY: Clear to auscultation. Breath sounds equal bilaterally. No wheezes , rales, or rhonchi. GASTROINTESTINAL: Abdomen soft, non-tender, nondistended. no bowel sounds yet MUSCULOSKELETAL: Extremities without clubbing, cyanosis, or edema. NEURO: Alert & Oriented x4 to person, place, time, situation. Moves all ext x4 A/P Problem List: (1) Small bowel obstruction Status: Acute Plan: - POD #2 - GILDA performed by Dr. Jeter (03/10/17) - clears - HALL MONITOR - constipation precautions - post op mgmt per surgery (2) Bradycardia Status: Acute Plan: - resolved - pt now trending tachycardic likely related to pain - appreciate input from cardiology - consider lexiscan outpt after current issue have been resolved - observe on telemetry (3) Hypertension Status: Chronic Plan: - stable - norvasc - prn catapress Jarad Guillermo DO Mar 11, 2017 15:34
[2017-03-11 16:10] LABS: CREATINE KINASE 44 U/L (26-192)
[2017-03-11] MEDS: POTASSIUM CHLOR 20 MEQ PREMIX 100 ML IV SCH ×2 (16:51→16:52)
--- NOTE | 2017-03-11 16:52 | HHI.PR ---
Subjective Subjective Notes pt states Abd pain better no flatus no BM Objective Vitals/I&O Vital Signs Date Time Temp Pulse Resp B/P Pulse Ox O2 Delivery O2 Flow Rate FiO2 03/11/17 12:00 98.3 113 18 121/60 94 03/11/17 10:42 Nasal Cannula 2.00 Labs Laboratory Tests Test 03/10/17 03/11/17 03/11/17 22:32 05:50 14:30 Total Creatine Kinase 34 40 44 Troponin I LESS THAN 0.02 LESS THAN 0.02 LESS THAN 0.02 White Blood Count 6.1 Red Blood Count 4.06 Hemoglobin 10.1 Hematocrit 31.4 Mean Corpuscular Volume 77.4 Mean Corpuscular Hemoglobin 24.9 Mean Corpuscular Hemoglobin 32.1 Concent Red Cell Distribution Width 20.1 Platelet Count 378 Mean Platelet Volume 8.0 Neutrophils (%) (Auto) 81.0 Lymphocytes (%) (Auto) 10.0 Monocytes (%) (Auto) 8.8 Eosinophils (%) (Auto) 0.1 Basophils (%) (Auto) 0.1 Neutrophils # (Auto) 5.0 Lymphocytes # (Auto) 0.6 Monocytes # (Auto) 0.5 Eosinophils # (Auto) 0.0 Basophils # (Auto) 0.0 CBC Comment DIFF FINAL Differential Comment Sodium Level 139 Potassium Level 3.2 3.2 Chloride Level 103 Carbon Dioxide Level 26.3 Anion Gap 10 Blood Urea Nitrogen 8 Creatinine 0.57 Estimat Glomerular Filtration 138 Rate Random Glucose 92 Calcium Level 8.2 Abdomen: Post-op tenderness Extremities: Perfused Narrative Exam mild distension Wound Wound : Wound Location: Abdomen Appearance: Clean & Dry A/P Assessment and Plan S/P lap GILDA for bowel obstruction normal changes post op OOB ambulate in hallway Cont NGT/NPO Len Hill MD Mar 11, 2017 16:52
[2017-03-11] MEDS: MORPHINE SULFATE 30 MG/30 ML PCA IV SCH (20:40)
[2017-03-11] MEDS: PANTOPRAZOLE SODIUM 40 MG VIAL IV PUSH SCH (22:16)
[2017-03-12 04:33] VITALS: BP 117/77; PULSE 90; RESP 17; TEMP 98.8; O2SAT 92
[2017-03-12] MEDS: NITROGLYCERIN 2% OINT 1 GM PACKET TOPICAL SCH (05:46)
[2017-03-12] MEDS: PCA - TOTAL MG MORPHINE DELIVERED PER SHIFT SCH ×3 (05:50→22:00)
[2017-03-12 07:06] LABS: AUTOMATED NEUTROPHIL # 4.9 TH/MM3 (1.8-7.7); BASOPHIL % 0.3 % (0.0-2.0); EOSINOPHIL # 0.3 TH/MM3 (0-0.4); EOSINOPHIL % 4.4 % (0.0-4.0); HEMATOCRIT 30.6 % (35.0-46.0); HEMO FLAGS DIFF FINAL; LYMPH % 12.6 % (9.0-44.0); LYMPHOCYTE # 0.9 TH/MM3 (1.0-4.8); MEAN CELL VOLUME 78.6 FL (80.0-100.0); MEAN CORPUSCULAR HEMOGLOBIN 24.6 PG (27.0-34.0); MEAN CORPUSCULAR HGB CONC 31.3 % (32.0-36.0); MONO % 12.5 % (0.0-8.0); NEUT % 70.2 % (16.0-70.0); PLATELET COUNT 350 TH/MM3 (150-450); RED CELL DISTRIBUTION WIDTH 20.6 % (11.6-17.2); WHITE BLOOD COUNT 6.9 TH/MM3 (4.0-11.0)
[2017-03-12 07:25] LABS: BICARBONATE 26.8 MEQ/L (21.0-32.0); MAGNESIUM 2.1 MG/DL (1.5-2.5); POTASSIUM 3.2 MEQ/L (3.5-5.1)
--- NOTE | 2017-03-12 07:47 | PD.CARD.PN ---
Subjective Subjective Remarks denies any CV complaints Objective Vital Signs / I&O Vital Signs Date Time Temp Pulse Resp B/P Pulse Ox O2 Delivery O2 Flow Rate FiO2 03/12/17 05:50 18 03/12/17 04:33 98.8 90 17 117/77 92 03/11/17 23:59 97.8 88 17 133/77 94 03/11/17 22:00 20 03/11/17 20:40 18 03/11/17 20:10 99.2 90 17 136/69 93 03/11/17 20:00 110 03/11/17 17:58 Nasal Cannula 2.00 03/11/17 16:00 98.8 109 18 144/66 96 03/11/17 12:00 98.3 113 18 121/60 94 03/11/17 10:42 96 Nasal Cannula 2.00 03/11/17 08:00 98.8 122 16 132/61 94 I/O 03/11/17 03/11/17 03/11/17 03/12/17 03/12/17 03/12/17 07:00 15:00 23:00 07:00 15:00 23:00 Intake Total 967 ml 845 ml 630 ml 642 ml Output Total 1800 ml 530 ml 725 ml 730 ml Balance -833 ml 315 ml -95 ml -88 ml Intake Oral 967 ml IV Total 845 ml 630 ml 642 ml Output Urine Total 1800 ml 450 ml 600 ml 380 ml Gastric Drainage Total 80 ml 125 ml 350 ml Physical Exam GENERAL: Well-nourished, well-developed patient in no apparent distress. NECK: No JVD. No carotid bruit. CARDIOVASCULAR: Regular rate and rhythm. S1/S2 no murmur, rub, or gallop. RESPIRATORY: No accessory muscle use. Clear to auscultation. Breath sounds equal bilaterally. GASTROINTESTINAL: Abdomen soft, non-tender, nondistended. MUSCULOSKELETAL: Extremities without clubbing, cyanosis, or edema. Laboratory Laboratory Tests Test 03/11/17 03/12/17 14:30 06:00 Potassium Level 3.2 MEQ/L 3.2 MEQ/L Total Creatine Kinase 44 U/L Troponin I LESS THAN 0.02 NG/ML White Blood Count 6.9 TH/MM3 Red Blood Count 3.90 MIL/MM3 Hemoglobin 9.6 GM/DL Hematocrit 30.6 % Mean Corpuscular Volume 78.6 FL Mean Corpuscular Hemoglobin 24.6 PG Mean Corpuscular Hemoglobin 31.3 % Concent Red Cell Distribution Width 20.6 % Platelet Count 350 TH/MM3 Mean Platelet Volume 7.5 FL Neutrophils (%) (Auto) 70.2 % Lymphocytes (%) (Auto) 12.6 % Monocytes (%) (Auto) 12.5 % Eosinophils (%) (Auto) 4.4 % Basophils (%) (Auto) 0.3 % Neutrophils # (Auto) 4.9 TH/MM3 Lymphocytes # (Auto) 0.9 TH/MM3 Monocytes # (Auto) 0.9 TH/MM3 Eosinophils # (Auto) 0.3 TH/MM3 Basophils # (Auto) 0.0 TH/MM3 CBC Comment DIFF FINAL Differential Comment Sodium Level 140 MEQ/L Chloride Level 104 MEQ/L Carbon Dioxide Level 26.8 MEQ/L Anion Gap 9 MEQ/L Blood Urea Nitrogen 10 MG/DL Creatinine 0.49 MG/DL Estimat Glomerular Filtration 164 ML/MIN Rate Random Glucose 81 MG/DL Calcium Level 8.0 MG/DL Magnesium Level 2.1 MG/DL Assessment and Plan Problem List: (1) Bradycardia Assessment and Plan bradycardia resolved, she is now NSR. Troponin is negative. Due to dynamic ECG changes should consider Lexiscan SPECT at outpatient sign off, call with further questions Ben Botello Mar 12, 2017 07:47
[2017-03-12 08:00] VITALS: BP 129/73; PULSE 105; RESP 18; TEMP 98.2; O2SAT 91
[2017-03-12] MEDS: SODIUM CHLORIDE 0.9% FLUSH 10 ML FLUSH IV FLUSH SCH ×2 (09:00→20:24)
[2017-03-12] MEDS: CHOLECALCIFEROL (VIT D3) 1000 UNIT TAB PO SCH (09:03)
[2017-03-12] MEDS: DOCUSATE SODIUM 50 MG/SENNA 8.6 MG TAB PO SCH ×2 (09:03→20:33)
[2017-03-12] MEDS: MULTIVITAMIN TAB PO SCH (09:03)
[2017-03-12] MEDS: ENOXAPARIN SODIUM 40 MG/0.4 ML SYRINGE SQ SCH (09:03)
[2017-03-12] MEDS: ALLOPURINOL 100 MG TAB PO SCH ×2 (09:03→20:33)
[2017-03-12] MEDS: FERROUS SULFATE 325 MG (65 MG ELEMENTAL IRON) TAB PO SCH ×2 (09:03→20:33)
[2017-03-12] MEDS: amLODIPine BESYLATE 5 MG TAB PO SCH (09:03)
[2017-03-12] MEDS: ONDANSETRON HCL 4 MG/2 ML VIAL IV PRN ×3 (09:22→20:22)
[2017-03-12] MEDS ORDERED: DILA2TAB2 PO (10:34)
[2017-03-12] MEDS: POTASSIUM CHLORIDE INJ 30 MEQ in SODIUM CHLORIDE 0.9% INJ 100 ML IV SCH ×2 (11:56→15:40)
[2017-03-12 12:00] VITALS: BP 132/76; PULSE 109; RESP 18; TEMP 98; O2SAT 89
--- NOTE | 2017-03-12 12:35 | HHI.PR ---
Subjective Subjective Notes 46yo female POD#1 laparoscopic lysis of adhesions. Laying in bed, abdominal pain is relieved, denies nausea or vomiting. Passing flatus. Tolerating sips of clears Objective Vitals/I&O Vital Signs Date Time Temp Pulse Resp B/P Pulse Ox O2 Delivery O2 Flow Rate FiO2 03/12/17 08:00 98.2 105 18 129/73 91 03/11/17 17:58 Nasal Cannula 2.00 Labs Laboratory Tests Test 03/11/17 03/12/17 14:30 06:00 Potassium Level 3.2 3.2 Total Creatine Kinase 44 Troponin I LESS THAN 0.02 White Blood Count 6.9 Red Blood Count 3.90 Hemoglobin 9.6 Hematocrit 30.6 Mean Corpuscular Volume 78.6 Mean Corpuscular Hemoglobin 24.6 Mean Corpuscular Hemoglobin 31.3 Concent Red Cell Distribution Width 20.6 Platelet Count 350 Mean Platelet Volume 7.5 Neutrophils (%) (Auto) 70.2 Lymphocytes (%) (Auto) 12.6 Monocytes (%) (Auto) 12.5 Eosinophils (%) (Auto) 4.4 Basophils (%) (Auto) 0.3 Neutrophils # (Auto) 4.9 Lymphocytes # (Auto) 0.9 Monocytes # (Auto) 0.9 Eosinophils # (Auto) 0.3 Basophils # (Auto) 0.0 CBC Comment DIFF FINAL Differential Comment Sodium Level 140 Chloride Level 104 Carbon Dioxide Level 26.8 Anion Gap 9 Blood Urea Nitrogen 10 Creatinine 0.49 Estimat Glomerular Filtration 164 Rate Random Glucose 81 Calcium Level 8.0 Magnesium Level 2.1 Cardiovascular: Regular Lungs: Clear Abdomen: Post-op tenderness Extremities: Perfused Narrative Exam NGT to LIWS with small amount of green drainage Wound Wound : Wound Location: Abdomen Appearance: Clean & Dry A/P Assessment and Plan Clamp NGT Start clears and advance to full liquids as tolerated Continue with frequent ambulation Discharge Planning D/C home probably Thursday depending on hospital course The exam, history, and the medical decision-making described in the above note were completed with the assistance of the mid-level provider. I reviewed and agree with the findings presented. I attest that I had a [id number] encounter with the patient on the same day, and personally performed and documented my assessment and findings in the medical record. Jeffery Vazquez [facility] Mar 12, 2017 12:35 Len Hill MD Mar 17, 2017 17:26
[2017-03-12] MEDS: SODIUM CHLOR 0.9% 1000 ML INJ 1,000 ML IV SCH ×2 (14:00→20:34)
[2017-03-12 16:00] VITALS: BP 180/87; PULSE 110; RESP 20; TEMP 96; O2SAT 92
--- NOTE | 2017-03-12 16:51 | HHI.PR ---
Subjective Remarks (+) flatus tolerating clears sips earlier today NGT clamped, then some nausea NGT was re-clamped Objective Vitals Vital Signs Date Time Temp Pulse Resp B/P Pulse Ox O2 Delivery O2 Flow Rate FiO2 03/12/17 16:00 96.0 110 20 180/87 92 03/12/17 14:00 17 03/12/17 12:00 98.0 109 18 132/76 89 03/12/17 08:00 98.2 105 18 129/73 91 03/12/17 05:50 18 03/12/17 04:33 98.8 90 17 117/77 92 03/11/17 23:59 97.8 88 17 133/77 94 03/11/17 22:00 20 03/11/17 20:40 18 03/11/17 20:10 99.2 90 17 136/69 93 03/11/17 20:00 110 03/11/17 17:58 Nasal Cannula 2.00 03/11/17 03/11/17 03/12/17 14:59 22:59 06:59 Intake Total 845 ml 630 ml 642 ml Output Total 530 ml 725 ml 730 ml Balance 315 ml -95 ml -88 ml IV Total 845 ml 630 ml 642 ml Output Urine Total 450 ml 600 ml 380 ml Gastric Drainage Total 80 ml 125 ml 350 ml Result Diagram: 03/12/17 0600 03/12/17 0600 Imaging Last Impressions Chest X-Ray 03/10/17 0000 Signed Impressions: Service Date/Time: Friday, March 10, 2017 21:33 - CONCLUSION: Right jugular line and NG tube as above. Mando Mera MD Abdomen/Pelvis CT 03/10/17 0000 Signed Impressions: Service Date/Time: Friday, March 10, 2017 10:36 - CONCLUSION: 1. Worsening dilatation of the small bowel consistent with a distal small bowel obstruction. There is a caliber change associated with the small bowel within the anterior mid peritoneal cavity but without obstructing etiology observed. 2. Small volume ascites. 3. Cholelithiasis. 4. Bibasilar atelectasis. 5. Prior ventral hernia repair without recurrent hernia. Amando Ross Jr., MD Abdomen X-Ray 03/09/17 0000 Signed Impressions: Service Date/Time: Thursday, March 09, 2017 17:21 - CONCLUSION: Normal examination. Anthony Lobato MD Objective Remarks GENERAL: This is a well-nourished, well-developed patient, in no apparent distress. CARDIOVASCULAR: Regular rate and rhythm without murmurs, gallops, or rubs. RESPIRATORY: Clear to auscultation. Breath sounds equal bilaterally. No wheezes , rales, or rhonchi. GASTROINTESTINAL: Abdomen soft, non-tender, nondistended. no bowel sounds yet MUSCULOSKELETAL: Extremities without clubbing, cyanosis, or edema. NEURO: Alert & Oriented x4 to person, place, time, situation. Moves all ext x4 A/P Problem List: (1) Small bowel obstruction Status: Acute Plan: - POD #1 - GILDA performed by Dr. 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 - NUMERICAL CONTROL OPERATOR - constipation precautions - post op mgmt per surgery - will try to re-clamp NGT - encourage ambulation - trial of clears (2) Bradycardia Status: Acute Plan: - resolved - pt now trending tachycardic likely related to pain - appreciate input from cardiology - consider lexiscan outpt after current issue have been resolved - some pause when pt was vomiting earlier today - per Cardiology, likely vasovagal in nature - continue to observe on telemetry (3) Hypertension Status: Chronic Plan: - stable - norvasc - prn catapress (4) Hypokalemia Status: Acute Plan: - replete - BMP in AM Jarad Guillermo DO Mar 12, 2017 16:51
[2017-03-12 20:00] VITALS: BP 132/86; PULSE 120; RESP 20; TEMP 96.9; O2SAT 75
[2017-03-12] MEDS: PANTOPRAZOLE SODIUM 40 MG VIAL IV PUSH SCH (20:19)
[2017-03-12 21:13] VITALS: O2SAT 95
[2017-03-12] MEDS ORDERED: PROMETHAZINE HCL 25 MG SUPP RECTAL PRN (22:00)
--- NOTE | 2017-03-12 22:12 | HHI.PR ---
Subjective Remarks Called to see patient with shortness of breath and nausea and vomit . Patient admitted with SBO which required surgery for adhesions,was on oxygen but did not like venti mask and changed to venturi mask and oxygen much better at 93% , on exam has some rhonchi bases and is anxious will try some nebulizer treatment ,try 20mg IV push lasix and get chest xray AP with lab work in am ,notify surgery about nausea which most likely normal s/p surgery. Objective Vitals GENERAL: SKIN: Warm and dry. HEAD: Atraumatic. Normocephalic. EYES: Pupils equal and round. No scleral icterus. No injection or drainage. ENT: No nasal bleeding or discharge. Mucous membranes pink and moist. NECK: Trachea midline. No JVD. CARDIOVASCULAR: Regular rate and rhythm. RESPIRATORY: No accessory muscle use. Rhonchi bases GASTROINTESTINAL: Abdomen soft, non-tender, nondistended. Hepatic and splenic margins not palpable. MUSCULOSKELETAL: Extremities without clubbing, cyanosis, or edema. No obvious deformities. NEUROLOGICAL: Awake and alert. No obvious cranial nerve deficits. Motor grossly within normal limits. Five out of 5 muscle strength in the arms and legs. Normal speech. PSYCHIATRIC: Appropriate mood and affect; insight and judgment normal. Vital Signs Date Time Temp Pulse Resp B/P Pulse Ox O2 Delivery O2 Flow Rate FiO2 03/12/17 21:13 95 Non-Rebreather 03/12/17 20:00 96.9 120 20 132/86 75 03/12/17 16:00 96.0 110 20 180/87 92 03/12/17 14:00 17 03/12/17 12:00 98.0 109 18 132/76 89 03/12/17 08:00 98.2 105 18 129/73 91 03/12/17 05:50 18 03/12/17 04:33 98.8 90 17 117/77 92 03/11/17 23:59 97.8 88 17 133/77 94 03/11/17 03/11/17 03/12/17 15:00 23:00 07:00 Intake Total 845 ml 630 ml 642 ml Output Total 530 ml 725 ml 730 ml Balance 315 ml -95 ml -88 ml IV Total 845 ml 630 ml 642 ml Output Urine Total 450 ml 600 ml 380 ml Gastric Drainage Total 80 ml 125 ml 350 ml Result Diagram: 03/12/17 0600 03/12/17 0600 Imaging Last Impressions Chest X-Ray 03/10/17 0000 Signed Impressions: Service Date/Time: Friday, March 10, 2017 21:33 - CONCLUSION: Right jugular line and NG tube as above. Mando Mera MD Abdomen/Pelvis CT 03/10/17 0000 Signed Impressions: Service Date/Time: Friday, March 10, 2017 10:36 - CONCLUSION: 1. Worsening dilatation of the small bowel consistent with a distal small bowel obstruction. There is a caliber change associated with the small bowel within the anterior mid peritoneal cavity but without obstructing etiology observed. 2. Small volume ascites. 3. Cholelithiasis. 4. Bibasilar atelectasis. 5. Prior ventral hernia repair without recurrent hernia. Amando Ross Jr., MD Abdomen X-Ray 03/09/17 0000 Signed Impressions: Service Date/Time: Thursday, March 09, 2017 17:21 - CONCLUSION: Normal examination. Anthony Lobato MD Objective Remarks GENERAL: This is a well-nourished, well-developed patient, in no apparent distress. CARDIOVASCULAR: Regular rate and rhythm without murmurs, gallops, or rubs. RESPIRATORY: Clear to auscultation. Breath sounds equal bilaterally. No wheezes , rales, or rhonchi. GASTROINTESTINAL: Abdomen soft, non-tender, nondistended. no bowel sounds yet MUSCULOSKELETAL: Extremities without clubbing, cyanosis, or edema. NEURO: Alert & Oriented x4 to person, place, time, situation. Moves all ext x4 A/P Problem List: (1) Small bowel obstruction Status: Acute Plan: - POD #1 - GILDA performed by Dr. 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 - post op mgmt per surgery - will try to re-clamp NGT - encourage ambulation - trial of clears (2) Bradycardia Status: Acute Plan: - resolved - pt now trending tachycardic likely related to pain - appreciate input from cardiology - consider lexiscan outpt after current issue have been resolved - some pause when pt was vomiting earlier today - per Cardiology, likely vasovagal in nature - continue to observe on telemetry (3) Hypertension Status: Chronic Plan: - stable - norvasc - prn catapress (4) Hypokalemia Status: Acute Plan: - replete - BMP in AM (5) Shortness of breath Status: Acute Plan: will change oxygen to venturi mask ,nebulizer treatment duoneb q 8h prn and lasix 20mg iV and chest xray ,patient is somewhat anxious will give prn ativan Assessment and Plan as above Drake Martínez MD Mar 12, 2017 22:12
[2017-03-12] MEDS ORDERED: LORazepam 2 MG/ML VIAL IV PUSH ONE (22:15)
[2017-03-12] MEDS ORDERED: FUROSEMIDE 20 MG/2 ML VIAL IV PUSH ONE (22:15)
[2017-03-12] MEDS ORDERED: RESP: ALBUTEROL 2.5 MG/IPRATROPIUM 0.5 MG NEB (PRN) NEB (22:15)
--- NOTE | 2017-03-12 22:49 | RADRPT ---
EXAM DATE/TIME: 03/12/2017 22:32 [facility] COMPARISON: CHEST SINGLE AP, March 10, 2017, 21:33. INDICATIONS : Short of breath MEDICAL HISTORY : Hypertension. SURGICAL HISTORY : Tubal ligation. Hernia repair. Right oopherectomy. ENCOUNTER: Subsequent ACUITY: 3 days PAIN SCORE: 0/10 LOCATION: chest FINDINGS: Cardiomegaly and left lower lobe consolidation. The lung volumes are diminished. EKG leads are presen t. CONCLUSION: Left lower lobe consolidation. Mando Mera MD on March 12, 2017 at 22:47 Board Certified Radiologist. This report was verified electronically.
[2017-03-13] VITALS (9 sets, daily range): BP systolic 119–145; BP diastolic 66–84; PULSE 107–115; RESP 18–21; TEMP 97.3–99.9; O2SAT 93–100
[2017-03-13] MEDS: PCA - TOTAL MG MORPHINE DELIVERED PER SHIFT SCH ×3 (05:52→20:33)
[2017-03-13 06:01] LABS: AUTOMATED NEUTROPHIL # 7.9 TH/MM3 (1.8-7.7); BASOPHIL % 0.4 % (0.0-2.0); EOSINOPHIL # 0.7 TH/MM3 (0-0.4); EOSINOPHIL % 6.7 % (0.0-4.0); HEMATOCRIT 30.1 % (35.0-46.0); LYMPH % 7.8 % (9.0-44.0); LYMPHOCYTE # 0.8 TH/MM3 (1.0-4.8); MEAN CELL VOLUME 78.2 FL (80.0-100.0); MEAN CORPUSCULAR HEMOGLOBIN 24.3 PG (27.0-34.0); MEAN CORPUSCULAR HGB CONC 31.1 % (32.0-36.0); MONO % 8.6 % (0.0-8.0); NEUT % 76.5 % (16.0-70.0); PLATELET COUNT 325 TH/MM3 (150-450); RED BLOOD COUNT 3.85 MIL/MM3 (4.00-5.30); RED CELL DISTRIBUTION WIDTH 20.5 % (11.6-17.2); WHITE BLOOD COUNT 10.3 TH/MM3 (4.0-11.0)
[2017-03-13 06:08] LABS: HEMO FLAGS AUTO DIFF
[2017-03-13 06:28] LABS: BICARBONATE 26.3 MEQ/L (21.0-32.0); POTASSIUM 3.1 MEQ/L (3.5-5.1)
--- NOTE | 2017-03-13 08:17 | PD.CARD.PN ---
Subjective Subjective Remarks Feels OK. Dyspnea last night. Cxr shows no evidence of CHF. Had what appears to be thirddegree heart block last night after vomiting episode. Now in NSR @ 90 BPM. Objective Vital Signs / I&O Vital Signs Date Time Temp Pulse Resp B/P Pulse Ox O2 Delivery O2 Flow Rate FiO2 03/13/17 05:52 18 03/13/17 04:00 97.4 112 21 145/66 100 03/13/17 01:04 99 Partial Rebreather 12.00 03/13/17 00:50 Non-Rebreather 12.00 03/13/17 00:00 97.8 107 21 119/77 100 03/12/17 22:00 17 03/12/17 21:13 95 Non-Rebreather 03/12/17 20:00 96.9 120 20 132/86 75 03/12/17 16:00 96.0 110 20 180/87 92 03/12/17 14:00 17 03/12/17 12:00 98.0 109 18 132/76 89 I/O 03/12/17 03/12/17 03/12/17 03/13/17 03/13/17 03/13/17 06:59 14:59 22:59 06:59 14:59 22:59 Intake Total 642 ml 825 ml 1387 ml 571 ml Output Total 730 ml 50 ml Balance -88 ml 825 ml 1387 ml 521 ml Intake Oral 490 ml 0 ml IV Total 642 ml 825 ml 897 ml 571 ml Output Urine Total 380 ml Gastric Drainage Total 350 ml 50 ml # Voids 2 1 # Bowel Movements 1 Physical Exam Lungs grossly clear RRR Laboratory Laboratory Tests Test 03/13/17 05:45 White Blood Count 10.3 TH/MM3 Red Blood Count 3.85 MIL/MM3 Hemoglobin 9.4 GM/DL Hematocrit 30.1 % Mean Corpuscular Volume 78.2 FL Mean Corpuscular Hemoglobin 24.3 PG Mean Corpuscular Hemoglobin 31.1 % Concent Red Cell Distribution Width 20.5 % Platelet Count 325 TH/MM3 Mean Platelet Volume 7.2 FL Neutrophils (%) (Auto) 76.5 % Lymphocytes (%) (Auto) 7.8 % Monocytes (%) (Auto) 8.6 % Eosinophils (%) (Auto) 6.7 % Basophils (%) (Auto) 0.4 % Neutrophils # (Auto) 7.9 TH/MM3 Lymphocytes # (Auto) 0.8 TH/MM3 Monocytes # (Auto) 0.9 TH/MM3 Eosinophils # (Auto) 0.7 TH/MM3 Basophils # (Auto) 0.0 TH/MM3 CBC Comment AUTO DIFF Sodium Level 139 MEQ/L Potassium Level 3.1 MEQ/L Chloride Level 103 MEQ/L Carbon Dioxide Level 26.3 MEQ/L Anion Gap 10 MEQ/L Blood Urea Nitrogen 7 MG/DL Creatinine 0.46 MG/DL Estimat Glomerular Filtration 176 ML/MIN Rate Random Glucose 85 MG/DL Calcium Level 8.3 MG/DL Assessment and Plan Problem List: (1) Bradycardia Assessment and Plan: Feel heart block secondary to vasovaoga response but will need continued monitoring. recommend CTA in view of dyspneic episode. Jayme Nava MD Mar 13, 2017 08:17
[2017-03-13] MEDS: MULTIVITAMIN TAB PO SCH (08:41)
[2017-03-13] MEDS: amLODIPine BESYLATE 5 MG TAB PO SCH (08:41)
[2017-03-13] MEDS: ALLOPURINOL 100 MG TAB PO SCH ×2 (08:41→20:33)
[2017-03-13] MEDS: PANTOPRAZOLE SODIUM 40 MG VIAL IV PUSH SCH ×2 (08:41→20:33)
[2017-03-13] MEDS: SODIUM CHLORIDE 0.9% FLUSH 10 ML FLUSH IV FLUSH SCH ×2 (08:41→20:33)
[2017-03-13] MEDS: CHOLECALCIFEROL (VIT D3) 1000 UNIT TAB PO SCH (08:41)
[2017-03-13] MEDS: FERROUS SULFATE 325 MG (65 MG ELEMENTAL IRON) TAB PO SCH ×2 (08:41→20:33)
[2017-03-13] MEDS: ENOXAPARIN SODIUM 40 MG/0.4 ML SYRINGE SQ SCH (08:41)
[2017-03-13] MEDS: DOCUSATE SODIUM 50 MG/SENNA 8.6 MG TAB PO SCH ×2 (08:41→20:33)
[2017-03-13] MEDS: SODIUM CHLOR 0.9% 1000 ML INJ 1,000 ML IV SCH ×2 (08:42→20:33)
[2017-03-13 08:43] LABS: BETA HCG QUANT LESS THAN 1 MIU/ML (0-5)
[2017-03-13 08:54] LABS: BANDS 14 % (0-6); CORRECTED NUCLEATED RBC 2 /100 WBC (0-0); EOSINOPHILS 6 % (0-4); MYELOCYTES 3 % (0-0); NEUTROPHIL # MANUAL DIFF 7.9 TH/MM3 (1.8-7.7); POLYS (SEG NEUTROPHILS) 60 % (16-70); SCAN/DIFF FINAL DIFF MANUAL; WBC DIFF SAMPLE 100
[2017-03-13 08:55] LABS: ACANTHOCYTES OCC (NORMAL); KERATOCYTES OCC (NORMAL); OVALOCYTES 1+ (NORMAL); PLATELET ESTIMATE SMEAR NORMAL (NORMAL); PLATELET MORPHOLOGY NORMAL (NORMAL)
[2017-03-13] MEDS ORDERED: IOHEXOL 350 MG/ML 10 ML VIAL (for RAD DIAG) IV ONE (09:43)
--- NOTE | 2017-03-13 09:57 | RADRPT ---
EXAM DATE/TIME: 03/13/2017 09:37 [facility] COMPARISON: No previous studies available for comparison. INDICATIONS : Worsening shortness of breath. IV CONTRAST: 68 cc Omnipaque 350 (iohexol) IV RADIATION DOSE: 26.88 CTDIvol (mGy) ; Patient body habitus MEDICAL HISTORY : Hypertension. SURGICAL HISTORY : Gastric sleeve, hernia repair, tubal ENCOUNTER: Initial ACUITY: 1 day PAIN SCALE: 0/10 LOCATION: Bilateral chest TECHNIQUE: Volumetric scanning of the chest was performed using a pulmonary embolism protocol MIP images were re constructed. Using automated exposure control and adjustment of the mA and/or kV according to patien t size, radiation dose was kept as low as reasonably achievable to obtain optimal diagnostic quality images. DICOM format image data is available electronically for review and comparison. Follow-up recommendations for incidentally detected pulmonary nodules are based at a minimum on nodul e size and patient risk factors according to Fleischner Society Guidelines. FINDINGS: Examination quality is severely degraded by respiratory motion artifact. PULMONARY ARTERIES: There is less than optimal opacification the pulmonary arteries and evaluation is also limited due to respiratory motion artifact. There are 2 possible filling defects in the right lower lobe and right middle lobe segmental pulmonary arteries. LUNGS: There is patchy groundglass opacity in the right upper lobe and consolidation in both lower lobes sherrill ng with dependent atelectasis. PLEURAE: There is trace left pleural fluid. MEDIASTINUM: There is good visualization of the great vessels of the middle mediastinum. No evidence of mediastin al or hilar adenopathy/mass. MUSCULOSKELETAL: Within normal limits for patient age. MISCELLANEOUS: The visualized upper abdominal organs demonstrate no acute abnormality. CONCLUSION: 1. Examination quality is significantly degraded by respiratory motion artifact and to a lesser exten t there is less than optimal opacification of the pulmonary arteries. There are 2 suspected filling d efects, possibly representing PE, in the right segmental pulmonary arteries. Given the limitations de scribed, consider performing a followup study when the patient is better able to cooperate with breat h-holding before placing the patient on long-term anticoagulation therapy. 2. Bilateral lower lobe and mild right upper lobe airspace consolidation. Nato García MD on March 13, 2017 at 9:50 Board Certified Radiologist. This report was verified electronically.
[2017-03-13] MEDS: POTASSIUM CHLOR 40 MEQ PREMIX 100 ML IV SCH ×2 (10:06→14:23)
[2017-03-13] MEDS ORDERED: HEPARIN SODIUM - IV 10,000 UNITS/10 ML VIAL IV PRN ×2 (15:15)
--- NOTE | 2017-03-13 15:18 | HHI.PR ---
Subjective Subjective Notes 46yo female POD#1 laparoscopic lysis of adhesions. Laying in bed, abdominal pain is relieved, denies nausea or vomiting.Had BM this morning. NGT was accidentially pulled by patient. Last night she went into some respiratory distress which lead to her being placed on a partial non-rebreather. She also received a dose of Lasix. CXR showed consolidation. She also had some pauses on telemetry overnight. This morning she was still on partial non-rebreather with some increased work of breathing. She was sent for STAT CTA which was suspicious for PE. Pt was placed on heparin protocol Objective Vitals/I&O Vital Signs Date Time Temp Pulse Resp B/P Pulse Ox O2 Delivery O2 Flow Rate FiO2 03/13/17 14:00 18 03/13/17 12:00 97.3 114 134/84 95 03/13/17 01:04 Partial Rebreather 12.00 Labs Laboratory Tests Test 03/13/17 05:45 White Blood Count 10.3 Red Blood Count 3.85 Hemoglobin 9.4 Hematocrit 30.1 Mean Corpuscular Volume 78.2 Mean Corpuscular Hemoglobin 24.3 Mean Corpuscular Hemoglobin 31.1 Concent Red Cell Distribution Width 20.5 Platelet Count 325 Mean Platelet Volume 7.2 Neutrophils (%) (Auto) 76.5 Lymphocytes (%) (Auto) 7.8 Monocytes (%) (Auto) 8.6 Eosinophils (%) (Auto) 6.7 Basophils (%) (Auto) 0.4 Neutrophils # (Auto) 7.9 Lymphocytes # (Auto) 0.8 Monocytes # (Auto) 0.9 Eosinophils # (Auto) 0.7 Basophils # (Auto) 0.0 CBC Comment AUTO DIFF Differential Total Cells 100 Counted Neutrophils % (Manual) 60 Band Neutrophils % 14 Lymphocytes % 8 Monocytes % 9 Eosinophils % 6 Neutrophils # (Manual) 7.9 Myelocytes 3 Nucleated Red Blood Cells 2 Differential Comment FINAL DIFF MANUAL Platelet Estimate NORMAL Platelet Morphology Comment NORMAL Ovalocytes 1+ Acanthocytes OCC Keratocytes OCC Sodium Level 139 Potassium Level 3.1 Chloride Level 103 Carbon Dioxide Level 26.3 Anion Gap 10 Blood Urea Nitrogen 7 Creatinine 0.46 Estimat Glomerular Filtration 176 Rate Random Glucose 85 Calcium Level 8.3 Human Chorionic Gonadotropin, LESS THAN 1 Quant Radiology Last [address] Angiography 03/13/17 0000 Signed Impressions: Service Date/Time: Monday, March 13, 2017 09:37 - CONCLUSION: 1. Examination quality is significantly degraded by respiratory motion artifact and to a lesser extent there is less than optimal opacification of the pulmonary arteries. There are 2 suspected filling defects, possibly representing PE, in the right segmental pulmonary arteries. Given the limitations described, consider performing a followup study when the patient is better able to cooperate with breath-holding before placing the patient on long-term anticoagulation therapy. 2. Bilateral lower lobe and mild right upper lobe airspace consolidation. Nato García MD Cardiovascular: Regular Lungs: Other (diminished on right) Abdomen: Post-op tenderness Extremities: Perfused Wound Wound : Wound Location: Abdomen Appearance: Clean & Dry A/P Assessment and Plan Clamp NGT Start clears and advance to full liquids as tolerated Continue with liquid diet, advance to full as tolerated Heparin gtt for PE Continue with frequent ambulation Discharge Planning D/C home hopefully Thursday or Thursday depending on hospital course The exam, history, and the medical decision-making described in the above note were completed with the assistance of the mid-level provider. I reviewed and agree with the findings presented. I attest that I had a [id number] encounter with the patient on the same day, and personally performed and documented my assessment and findings in the medical record. Jeffery Vazquez Mar 13, 2017 15:18 Len Hill MD Mar 17, 2017 17:18
[2017-03-13] MEDS: RESP: ALBUTEROL 2.5 MG/IPRATROPIUM 0.5 MG NEB (SCH) NEB ×2 (15:26→20:11)
[2017-03-13 16:04] LABS: APTT (PATIENT) 38.3 SEC (24.3-30.1); INTERNATIONAL NORMALIZED RATIO 1.1 RATIO; PROTHROMBIN TIME - PATIENT 12.1 SEC (9.8-11.6)
[2017-03-13] MEDS: HEPARIN 25,000 UNITS-D5W 250 ML - PREMIX IV SCH (16:47)
[2017-03-13] MEDS: ONDANSETRON HCL 4 MG/2 ML VIAL IV PRN ×2 (17:02→20:33)
--- NOTE | 2017-03-13 17:20 | HHI.PR ---
Subjective Remarks tolerating clears. Had BM this morning. SOB improved. Objective Vitals Vital Signs Date Time Temp Pulse Resp B/P Pulse Ox O2 Delivery O2 Flow Rate FiO2 03/13/17 16:00 99.9 115 20 139/77 97 03/13/17 15:26 95 Nasal Cannula 2.00 03/13/17 14:00 18 03/13/17 12:00 97.3 114 20 134/84 95 03/13/17 11:40 95 Nasal Cannula 2.00 03/13/17 07:15 97.3 111 20 131/82 94 03/13/17 05:52 18 03/13/17 04:00 97.4 112 21 145/66 100 03/13/17 01:04 99 Partial Rebreather 12.00 03/13/17 00:50 Non-Rebreather 12.00 03/13/17 00:00 97.8 107 21 119/77 100 03/12/17 22:00 17 03/12/17 21:13 95 Non-Rebreather 03/12/17 20:00 96.9 120 20 132/86 75 03/12/17 03/12/17 03/13/17 15:00 23:00 07:00 Intake Total 825 ml 1387 ml 571 ml Output Total 50 ml Balance 825 ml 1387 ml 521 ml Intake Oral 490 ml 0 ml IV Total 825 ml 897 ml 571 ml Gastric Drainage Total 50 ml # Voids 2 1 Result Diagram: 03/13/17 0545 03/13/17 [address] Angiography 03/13/17 0000 Signed Impressions: Service Date/Time: Monday, March 13, 2017 09:37 - CONCLUSION: 1. Examination quality is significantly degraded by respiratory motion artifact and to a lesser extent there is less than optimal opacification of the pulmonary arteries. There are 2 suspected filling defects, possibly representing PE, in the right segmental pulmonary arteries. Given the limitations described, consider performing a followup study when the patient is better able to cooperate with breath-holding before placing the patient on long-term anticoagulation therapy. 2. Bilateral lower lobe and mild right upper lobe airspace consolidation. Nato García MD Chest X-Ray 03/12/17 0000 Signed Impressions: Service Date/Time: February 22:32 - CONCLUSION: Left lower lobe consolidation. Mando Mera MD Abdomen/Pelvis CT 03/10/17 0000 Signed Impressions: Service Date/Time: Friday, March 10, 2017 10:36 - CONCLUSION: 1. Worsening dilatation of the small bowel consistent with a distal small bowel obstruction. There is a caliber change associated with the small bowel within the anterior mid peritoneal cavity but without obstructing etiology observed. 2. Small volume ascites. 3. Cholelithiasis. 4. Bibasilar atelectasis. 5. Prior ventral hernia repair without recurrent hernia. Amando Ross Jr., MD Abdomen X-Ray 03/09/17 0000 Signed Impressions: Service Date/Time: Thursday, March 09, 2017 17:21 - CONCLUSION: Normal examination. Anthony Lobato MD Objective Remarks GENERAL: This is a well-nourished, well-developed patient, in no apparent distress. CARDIOVASCULAR: Regular rate and rhythm without murmurs, gallops, or rubs. RESPIRATORY: Clear to auscultation. Breath sounds equal bilaterally. No wheezes , rales, or rhonchi. GASTROINTESTINAL: Abdomen soft, non-tender, nondistended. no bowel sounds yet MUSCULOSKELETAL: Extremities without clubbing, cyanosis, or edema. NEURO: Alert & Oriented x4 to person, place, time, situation. Moves all ext x4 A/P Problem List: (1) Pulmonary embolism Status: Acute Plan: - heparin gtt - will convert to eliquis upon discharge - O2 by NC (2) Small bowel obstruction Status: Acute Plan: - POD #2 - GILDA performed by Dr. Jeter (03/10/17) - case d/w Dr. 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 - constipation precautions - post op mgmt per surgery - clears (3) Bradycardia Status: Acute Plan: - resolved - pt now trending tachycardic likely related to pain - appreciate input from cardiology - consider lexiscan outpt after current issue have been resolved - some pause when pt was vomiting earlier today - per Cardiology, likely vasovagal in nature - continue to observe on telemetry (4) Hypertension Status: Chronic Plan: - stable - norvasc - prn catapress (5) Hypokalemia Status: Acute Plan: - replete - BMP in AM Jarad Guillermo DO Mar 13, 2017 17:20 ativan Assessment and Plan as above Jarad Guillermo DO Mar 13, 2017 17:20
[2017-03-13 23:21] LABS: APTT (PATIENT) 88.5 SEC (24.3-30.1)
[2017-03-14] VITALS (9 sets, daily range): BP systolic 121–150; BP diastolic 76–81; PULSE 102–114; RESP 17–21; TEMP 98–99.3; O2SAT 92–100
[2017-03-14] MEDS: RESP: ALBUTEROL 2.5 MG/IPRATROPIUM 0.5 MG NEB (SCH) NEB ×6 (01:35→22:04)
[2017-03-14] MEDS: HEPARIN 25,000 UNITS-D5W 250 ML - PREMIX IV SCH ×2 (05:18→21:04)
[2017-03-14] MEDS: SODIUM CHLOR 0.9% 1000 ML INJ 1,000 ML IV SCH (05:19)
[2017-03-14] MEDS: PCA - TOTAL MG MORPHINE DELIVERED PER SHIFT SCH ×3 (05:19→22:00)
[2017-03-14 06:08] LABS: APTT (PATIENT) 75.8 SEC (24.3-30.1)
[2017-03-14] MEDS: MORPHINE SULFATE 30 MG/30 ML PCA IV SCH (06:19)
[2017-03-14] MEDS: amLODIPine BESYLATE 5 MG TAB PO SCH (08:39)
[2017-03-14] MEDS: PANTOPRAZOLE SODIUM 40 MG VIAL IV PUSH SCH ×2 (08:39→19:57)
[2017-03-14] MEDS: CHOLECALCIFEROL (VIT D3) 1000 UNIT TAB PO SCH (08:40)
[2017-03-14] MEDS: FERROUS SULFATE 325 MG (65 MG ELEMENTAL IRON) TAB PO SCH ×2 (08:40→19:57)
[2017-03-14] MEDS: DOCUSATE SODIUM 50 MG/SENNA 8.6 MG TAB PO SCH ×2 (08:40→21:00)
[2017-03-14] MEDS: ALLOPURINOL 100 MG TAB PO SCH ×2 (08:40→19:59)
[2017-03-14] MEDS: SODIUM CHLORIDE 0.9% FLUSH 10 ML FLUSH IV FLUSH SCH ×2 (08:40→19:57)
[2017-03-14] MEDS: MULTIVITAMIN TAB PO SCH (08:40)
[2017-03-14] MEDS: ONDANSETRON HCL 4 MG/2 ML VIAL IV PRN ×2 (09:17→18:02)
--- NOTE | 2017-03-14 11:43 | HHI.PR ---
Subjective Subjective Notes She is having some nausea but basically tolerating clears. + flatus. Ambulating. No SOB. Objective Vitals/I&O Vital Signs Date Time Temp Pulse Resp B/P Pulse Ox O2 Delivery O2 Flow Rate FiO2 03/14/17 08:00 110 03/14/17 08:00 98.0 17 126/79 97 03/14/17 07:31 Nasal Cannula 3.00 Labs Laboratory Tests Test 03/13/17 03/13/17 03/14/17 14:20 22:45 05:00 Prothrombin Time 12.1 Prothromb Time International 1.1 Ratio Activated Partial 38.3 88.5 75.8 Thromboplast Time Potassium Level 3.7 Radiology Last [address] Angiography 03/13/17 0000 Signed Impressions: Service Date/Time: Monday, March 13, 2017 09:37 - CONCLUSION: 1. Examination quality is significantly degraded by respiratory motion artifact and to a lesser extent there is less than optimal opacification of the pulmonary arteries. There are 2 suspected filling defects, possibly representing PE, in the right segmental pulmonary arteries. Given the limitations described, consider performing a followup study when the patient is better able to cooperate with breath-holding before placing the patient on long-term anticoagulation therapy. 2. Bilateral lower lobe and mild right upper lobe airspace consolidation. Nato García MD Narrative Exam NAD nonlabored breathing Abd: obese, soft, mild distention, inc c/d/i A/P Assessment and Plan 46 yo F POD 4 s/p lap GILDA. Post op PE. Mild persistent nausea. Add phenergan. Fulls. 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
[2017-03-14] MEDS ORDERED: ACETAMINOPHEN 325MG/HYDROcodone 7.5MG/15ML UDC PO PRN (11:45)
[2017-03-14] MEDS ORDERED: PROMETHAZINE HCL 25 MG TAB PO PRN (11:45)
[2017-03-14 12:48] LABS: APTT (PATIENT) 73.2 SEC (24.3-30.1)
--- NOTE | 2017-03-14 16:01 | PD.CARD.PN ---
Subjective Subjective Remarks no CV complaints Objective Medications Current Medications Medications (Trade) Dose Ordered Sig/Patrice Route Start Time Stop Time Status Last Admin (Dilaudid Pf Inj) 0.5 mg Q3H PRN IV 03/08/17 18:45 03/10/17 15:43 (Aurora-Colace) 1 tab BID PO 03/08/17 21:00 03/14/17 08:40 (Milk Of Magnesia Liq) 30 ml Q12H PRN PO 03/08/17 18:45 (Senokot) 17.2 mg Q12H PRN PO 03/08/17 18:45 (Dulcolax Supp) 10 mg DAILY PRN RECTAL 03/08/17 18:45 (Lactulose Liq) 30 ml DAILY PRN PO 03/08/17 18:45 (Catapres) 0.1 mg Q6H PRN PO 03/08/17 18:45 (Norvasc) 5 mg DAILY PO 03/09/17 09:00 03/14/17 08:39 (Zyloprim) 100 mg BID PO 03/08/17 21:00 03/14/17 08:40 (Vitamin D3) 1,000 units DAILY PO 03/09/17 09:00 03/14/17 08:40 (Ferrous Sulfate) 325 mg BID PO 03/08/17 21:00 03/14/17 08:40 (Theragran) 1 tab DAILY PO 03/09/17 09:00 03/14/17 08:40 Simethicone 125 mg 125 mg QID PRN PO 03/09/17 23:15 03/09/17 23:22 (NS 1000 ml Inj) 1,000 ml @ 0 mls/hr Q10H IV 03/10/17 22:00 03/14/17 05:19 (NS Flush) 2 ml UNSCH PRN IV FLUSH 03/10/17 21:30 (NS Flush) 2 ml BID IV FLUSH 03/11/17 09:00 03/14/17 08:40 (Zofran Inj) 4 mg Q4H PRN IV 03/10/17 21:30 03/14/17 09:17 (Benadryl) 25 mg Q6H PRN PO 03/10/17 21:30 (Narcan Inj) 0.4 mg UNSCH PRN IV 03/10/17 21:30 (Morphine 1 Mg/ ml LONG TERM CARE PHARMACIST) 30 mg UNSCH IV 03/10/17 21:30 03/14/17 06:19 LONG TERM CARE PHARMACIST Dosage Infused (Pha) 1 Q8HR .XX 03/10/17 22:00 03/14/17 05:19 (Phenergan Supp) 25 mg Q6H PRN RECTAL 03/12/17 22:00 Pantoprazole Sodium 40 mg 40 mg BID IV PUSH 03/13/17 09:00 03/14/17 08:39 (Heparin-D5W Inj) 250 ml @ 0 mls/hr TITRATE IV 03/13/17 15:15 03/14/17 05:18 (Heparin Inj) 5,000 units UNSCH PRN IV 03/13/17 15:15 (Heparin Inj) 2,500 units UNSCH PRN IV 03/13/17 15:15 (Phenergan) 12.5 mg Q4H PRN PO 03/14/17 11:45 (Hycet 325-7.5 Mg Liq) 15 ml Q4H PRN PO 03/14/17 11:45 03/14/17 15:17 Vital Signs / I&O Vital Signs Date Time Temp Pulse Resp B/P Pulse Ox O2 Delivery O2 Flow Rate FiO2 03/14/17 12:00 98.4 102 18 150/81 95 03/14/17 08:00 110 03/14/17 08:00 98.0 111 17 126/79 97 03/14/17 07:31 92 Nasal Cannula 3.00 03/14/17 06:19 18 03/14/17 05:19 18 03/14/17 04:00 98.3 111 20 145/77 95 03/14/17 01:35 93 Nasal Cannula 2.50 03/14/17 00:00 99.3 114 18 121/76 92 03/13/17 20:33 18 03/13/17 20:00 99.1 112 18 121/74 93 I/O 03/13/17 03/13/17 03/13/17 03/14/17 03/14/17 03/14/17 07:00 15:00 23:00 07:00 15:00 23:00 Intake Total 571 ml 720 ml 940 ml 480 ml 120 ml Output Total 50 ml Balance 521 ml 720 ml 940 ml 480 ml 120 ml Intake Oral 0 ml 720 ml 240 ml 480 ml 120 ml IV Total 571 ml 700 ml Gastric Drainage Total 50 ml # Voids 1 2 2 2 1 # Bowel Movements 1 0 Physical Exam GENERAL: Well developed, well nourished. No acute distress. HEENT: Jugular venous pressure is normal. CHEST: Lungs clear to auscultation bilaterally. Unlabored respiratory effort. CARDIAC: Regular rate and rhythm without S3, S4, or murmur. ABDOMEN: Soft, nontender, no hepatosplenomegaly. Bowel sounds present. EXTREMITIES: No clubbing, cyanosis, or edema. Laboratory Laboratory Tests Test 03/13/17 03/14/17 03/14/17 22:45 05:00 12:00 Activated Partial 88.5 SEC 75.8 SEC 73.2 SEC Thromboplast Time Assessment and Plan Problem List: (1) Pulmonary embolism Assessment and Plan: on CTA; anticoagulation per primary team (2) Tachycardia Assessment and Plan: likely related to PE and anxiety (per pt) (3) Hypertension (4) Bradycardia Assessment and Plan: Feel heart block secondary to vasovaogal response but will need continued monitoring. recommend CTA in view of dyspneic episode. => now tachycardic (5) Small bowel obstruction Barbara Vidal MD Mar 14, 2017 16:01
--- NOTE | 2017-03-14 17:53 | HHI.PR ---
Subjective Remarks tolerating clears. Objective Vitals Vital Signs Date Time Temp Pulse Resp B/P Pulse Ox O2 Delivery O2 Flow Rate FiO2 03/14/17 16:00 98.6 106 18 128/80 100 03/14/17 14:00 16 03/14/17 12:00 98.4 102 18 150/81 95 03/14/17 08:00 110 03/14/17 08:00 98.0 111 17 126/79 97 03/14/17 07:31 92 Nasal Cannula 3.00 03/14/17 06:19 18 03/14/17 05:19 18 03/14/17 04:00 98.3 111 20 145/77 95 03/14/17 01:35 93 Nasal Cannula 2.50 03/14/17 00:00 99.3 114 18 121/76 92 03/13/17 20:33 18 03/13/17 20:00 99.1 112 18 121/74 93 03/13/17 03/13/17 03/14/17 15:00 23:00 07:00 Intake Total 720 ml 940 ml 480 ml Balance 720 ml 940 ml 480 ml Intake Oral 720 ml 240 ml 480 ml IV Total 700 ml # Voids 2 2 2 # Bowel Movements 1 Result Diagram: 03/13/17 0545 03/13/17 [address] Angiography 03/13/17 0000 Signed Impressions: Service Date/Time: Monday, March 13, 2017 09:37 - CONCLUSION: 1. Examination quality is significantly degraded by respiratory motion artifact and to a lesser extent there is less than optimal opacification of the pulmonary arteries. There are 2 suspected filling defects, possibly representing PE, in the right segmental pulmonary arteries. Given the limitations described, consider performing a followup study when the patient is better able to cooperate with breath-holding before placing the patient on long-term anticoagulation therapy. 2. Bilateral lower lobe and mild right upper lobe airspace consolidation. Nato García MD Chest X-Ray 03/12/17 0000 Signed Impressions: Service Date/Time: February 22:32 - CONCLUSION: Left lower lobe consolidation. Mando Mera MD Abdomen/Pelvis CT 03/10/17 0000 Signed Impressions: Service Date/Time: Friday, March 10, 2017 10:36 - CONCLUSION: 1. Worsening dilatation of the small bowel consistent with a distal small bowel obstruction. There is a caliber change associated with the small bowel within the anterior mid peritoneal cavity but without obstructing etiology observed. 2. Small volume ascites. 3. Cholelithiasis. 4. Bibasilar atelectasis. 5. Prior ventral hernia repair without recurrent hernia. Amando Ross Jr., MD Abdomen X-Ray 03/09/17 0000 Signed Impressions: Service Date/Time: Thursday, March 09, 2017 17:21 - CONCLUSION: Normal examination. Anthony Lobato MD Objective Remarks GENERAL: This is a well-nourished, well-developed patient, in no apparent distress. CARDIOVASCULAR: Regular rate and rhythm without murmurs, gallops, or rubs. RESPIRATORY: Clear to auscultation. Breath sounds equal bilaterally. No wheezes , rales, or rhonchi. GASTROINTESTINAL: Abdomen soft, non-tender, nondistended. decreased bowel sounds MUSCULOSKELETAL: Extremities without clubbing, cyanosis, or edema. NEURO: Alert & Oriented x4 to person, place, time, situation. Moves all ext x4 A/P Problem List: (1) Small bowel obstruction Status: Acute Plan: - POD #3 - GILDA performed by Dr. Jeter (03/10/17) - case d/w Dr. Holliday (03/13/17) - tolerating clear - [employer], hydrocodone prn - IV Protonix BID - constipation precautions - post op mgmt per surgery - clears (2) Pulmonary embolism Status: Acute Plan: - heparin gtt - will convert to eliquis upon discharge - O2 by NC (3) Bradycardia Status: Acute Plan: - resolved - pt now trending tachycardic likely related to pain - appreciate input from cardiology - consider lexiscan outpt after current issue have been resolved - some pause when pt was vomiting earlier today - per Cardiology, likely vasovagal in nature - continue to observe on telemetry (4) Hypertension Status: Chronic Plan: - stable - norvasc - prn catapress (5) Hypokalemia Status: Acute Plan: - replete - BMP in AM Assessment and Plan as above Jarad Guillermo DO Mar 14, 2017 17:53 Jarad Guillermo DO Mar 14, 2017 17:53
[2017-03-14 19:05] LABS: APTT (PATIENT) 71.4 SEC (24.3-30.1)
[2017-03-14] MEDS: LORazepam 2 MG/ML VIAL IV PUSH PRN (20:02)
[2017-03-15] VITALS (11 sets, daily range): BP systolic 130–164; BP diastolic 62–81; PULSE 100–117; RESP 17–22; TEMP 97.7–99.3; O2SAT 93–97
[2017-03-15] MEDS: RESP: ALBUTEROL 2.5 MG/IPRATROPIUM 0.5 MG NEB (SCH) NEB ×6 (00:11→21:14)
[2017-03-15] MEDS: ONDANSETRON HCL 4 MG/2 ML VIAL IV PRN ×3 (01:38→15:00)
[2017-03-15] MEDS: PCA - TOTAL MG MORPHINE DELIVERED PER SHIFT SCH ×4 (06:00→22:26)
[2017-03-15] MEDS: PANTOPRAZOLE SODIUM 40 MG VIAL IV PUSH SCH (08:14)
[2017-03-15] MEDS: SODIUM CHLORIDE 0.9% FLUSH 10 ML FLUSH IV FLUSH SCH ×2 (08:15→20:49)
[2017-03-15] MEDS: FERROUS SULFATE 325 MG (65 MG ELEMENTAL IRON) TAB PO SCH ×2 (09:00→20:50)
[2017-03-15] MEDS: amLODIPine BESYLATE 5 MG TAB PO SCH (09:00)
[2017-03-15] MEDS: MULTIVITAMIN TAB PO SCH (09:00)
[2017-03-15] MEDS: CHOLECALCIFEROL (VIT D3) 1000 UNIT TAB PO SCH (09:00)
[2017-03-15] MEDS: ALLOPURINOL 100 MG TAB PO SCH ×2 (09:00→20:50)
[2017-03-15] MEDS: DOCUSATE SODIUM 50 MG/SENNA 8.6 MG TAB PO SCH ×2 (09:00→20:50)
--- NOTE | 2017-03-15 13:52 | HHI.PR ---
Subjective Subjective Notes Her pain is subjectively better. She had 2 bowel movements earlier in the day. She is beginning to ambulate better. Objective Vitals/I&O Vital Signs Date Time Temp Pulse Resp B/P Pulse Ox O2 Delivery O2 Flow Rate FiO2 03/15/17 12:16 94 Nasal Cannula 2.00 03/15/17 12:00 98.1 109 17 138/80 03/15/17 08:40 21 Labs Laboratory Tests Test 03/14/17 03/15/17 18:00 03:45 Activated Partial 71.4 72.0 Thromboplast Time Radiology Last [address] Angiography 03/13/17 0000 Signed Impressions: Service Date/Time: Monday, March 13, 2017 09:37 - CONCLUSION: 1. Examination quality is significantly degraded by respiratory motion artifact and to a lesser extent there is less than optimal opacification of the pulmonary arteries. There are 2 suspected filling defects, possibly representing PE, in the right segmental pulmonary arteries. Given the limitations described, consider performing a followup study when the patient is better able to cooperate with breath-holding before placing the patient on long-term anticoagulation therapy. 2. Bilateral lower lobe and mild right upper lobe airspace consolidation. Nato García MD Cardiovascular: Regular Lungs: Clear Abdomen: Non-distended, Non-tender, BS normal Extremities: No edema A/P Assessment and Plan Impression: Postop day #5 status post laparoscopic lysis of adhesions. She is improving from the surgical standpoint, although she is continuing to be treated for pulmonary emboli. Plan: She will be advanced to a heart healthy diet today. She's been encouraged to ambulate even more. Jimenez Salcedo MD Mar 15, 2017 13:52
--- NOTE | 2017-03-15 14:30 | PD.CARD.PN ---
Subjective Subjective Remarks Pt without complaints; reports tachy with ambulation Objective Medications Current Medications Medications (Trade) Dose Ordered Sig/Patrice Route Start Time Stop Time Status Last Admin (Dilaudid Pf Inj) 0.5 mg Q3H PRN IV 03/08/17 18:45 03/10/17 15:43 (Aurora-Colace) 1 tab BID PO 03/08/17 21:00 03/14/17 08:40 (Milk Of Magnesia Liq) 30 ml Q12H PRN PO 03/08/17 18:45 (Senokot) 17.2 mg Q12H PRN PO 03/08/17 18:45 (Dulcolax Supp) 10 mg DAILY PRN RECTAL 03/08/17 18:45 (Lactulose Liq) 30 ml DAILY PRN PO 03/08/17 18:45 (Catapres) 0.1 mg Q6H PRN PO 03/08/17 18:45 (Norvasc) 5 mg DAILY PO 03/09/17 09:00 03/14/17 08:39 (Zyloprim) 100 mg BID PO 03/08/17 21:00 03/14/17 08:40 (Vitamin D3) 1,000 units DAILY PO 03/09/17 09:00 03/14/17 08:40 (Ferrous Sulfate) 325 mg BID PO 03/08/17 21:00 03/14/17 08:40 (Theragran) 1 tab DAILY PO 03/09/17 09:00 03/14/17 08:40 Simethicone 125 mg 125 mg QID PRN PO 03/09/17 23:15 03/09/17 23:22 (NS 1000 ml Inj) 1,000 ml @ 0 mls/hr Q10H IV 03/10/17 22:00 03/14/17 05:19 (NS Flush) 2 ml UNSCH PRN IV FLUSH 03/10/17 21:30 (NS Flush) 2 ml BID IV FLUSH 03/11/17 09:00 03/15/17 08:15 (Zofran Inj) 4 mg Q4H PRN IV 03/10/17 21:30 03/15/17 08:14 (Benadryl) 25 mg Q6H PRN PO 03/10/17 21:30 (Narcan Inj) 0.4 mg UNSCH PRN IV 03/10/17 21:30 (Morphine 1 Mg/ ml [employer]) 30 mg UNSCH IV 03/10/17 21:30 03/14/17 06:19 [employer] Dosage Infused (Pha) 1 Q8HR .XX 03/10/17 22:00 03/14/17 22:00 (Phenergan Supp) 25 mg Q6H PRN RECTAL 03/12/17 22:00 Pantoprazole Sodium 40 mg 40 mg BID IV PUSH 03/13/17 09:00 03/15/17 08:14 (Heparin-D5W Inj) 250 ml @ 0 mls/hr TITRATE IV 03/13/17 15:15 03/14/17 21:04 (Heparin Inj) 5,000 units UNSCH PRN IV 03/13/17 15:15 (Heparin Inj) 2,500 units UNSCH PRN IV 03/13/17 15:15 (Phenergan) 12.5 mg Q4H PRN PO 03/14/17 11:45 (Hycet 325-7.5 Mg Liq) 15 ml Q4H PRN PO 03/14/17 11:45 03/14/17 15:17 (Ativan Inj) 0.5 mg Q6H PRN IV PUSH 03/14/17 18:15 03/14/17 20:02 Vital Signs / I&O Vital Signs Date Time Temp Pulse Resp B/P Pulse Ox O2 Delivery O2 Flow Rate FiO2 03/15/17 12:16 94 Nasal Cannula 2.00 03/15/17 12:00 98.1 109 17 138/80 93 03/15/17 08:40 95 21 03/15/17 08:00 100 03/15/17 08:00 99.3 110 17 139/65 97 03/15/17 08:00 Nasal Cannula 03/15/17 06:00 16 03/15/17 04:24 95 Nasal Cannula 3.00 03/15/17 04:00 98.8 114 20 130/62 96 03/15/17 00:13 95 Nasal Cannula 3.00 03/15/17 00:00 97.7 117 21 135/81 95 03/14/17 22:08 95 Nasal Cannula 3.00 03/14/17 22:00 16 03/14/17 21:11 Nasal Cannula 3.00 03/14/17 20:00 95 Nasal Cannula 3.00 03/14/17 20:00 107 03/14/17 20:00 98.8 105 21 138/80 95 03/14/17 16:00 98.6 106 18 128/80 100 I/O 03/14/17 03/14/17 03/14/17 03/15/17 03/15/17 03/15/17 07:00 15:00 23:00 07:00 15:00 23:00 Intake Total 480 ml 120 ml 822 ml 240 ml Balance 480 ml 120 ml 822 ml 240 ml Intake Oral 480 ml 120 ml 500 ml 240 ml IV Total 322 ml # Voids 2 1 1 1 # Bowel Movements 0 Physical Exam GENERAL: Well developed, well nourished. No acute distress. HEENT: Jugular venous pressure is normal. CHEST: Lungs clear to auscultation bilaterally. Unlabored respiratory effort. CARDIAC: Regular tachy rate and rhythm without S3, S4, or murmur. ABDOMEN: Soft, nontender, no hepatosplenomegaly. Bowel sounds present. EXTREMITIES: No clubbing, cyanosis, or edema. Laboratory Laboratory Tests Test 03/14/17 03/15/17 18:00 03:45 Activated Partial 71.4 SEC 72.0 SEC Thromboplast Time Imaging Last [address] Angiography 03/13/17 0000 Signed Impressions: Service Date/Time: Monday, March 13, 2017 09:37 - CONCLUSION: 1. Examination quality is significantly degraded by respiratory motion artifact and to a lesser extent there is less than optimal opacification of the pulmonary arteries. There are 2 suspected filling defects, possibly representing PE, in the right segmental pulmonary arteries. Given the limitations described, consider performing a followup study when the patient is better able to cooperate with breath-holding before placing the patient on long-term anticoagulation therapy. 2. Bilateral lower lobe and mild right upper lobe airspace consolidation. Nato García MD Assessment and Plan Problem List: (1) Pulmonary embolism Assessment and Plan: on CTA; heparin anticoagulation per primary team (2) Tachycardia Assessment and Plan: likely related to PE, felt reasonable given circumstance -pt encouraged to slow down if she feels her hear racing (3) Hypertension (4) Bradycardia (5) Small bowel obstruction Barbara Vidal MD Mar 15, 2017 14:30
[2017-03-15] MEDS: HEPARIN 25,000 UNITS-D5W 250 ML - PREMIX IV SCH (14:56)
[2017-03-15] MEDS: HYDROmorphone HCL PF 1 MG/ML VIAL IV PRN (15:00)
[2017-03-15] MEDS ORDERED: ACETAMINOPHEN 325 MG TAB PO PRN (19:15)
[2017-03-15] MEDS: PANTOPRAZOLE SOD 40 MG DELAYED RELEASE TAB PO SCH (20:50)
[2017-03-15] MEDS: LORazepam 2 MG/ML VIAL IV PUSH PRN (20:54)
[2017-03-15] MEDS: SODIUM CHLORIDE 0.9% FLUSH 10 ML FLUSH IV FLUSH PRN (20:55)
[2017-03-15] MEDS ORDERED: ACETAMINOPHEN 325MG/HYDROcodone 7.5MG/15ML UDC PO PRN (21:45)
[2017-03-16] VITALS (8 sets, daily range): BP systolic 120–144; BP diastolic 66–76; PULSE 105–110; RESP 17–22; TEMP 97–98.5; O2SAT 93–96
[2017-03-16] MEDS: RESP: ALBUTEROL 2.5 MG/IPRATROPIUM 0.5 MG NEB (SCH) NEB ×6 (00:22→21:12)
[2017-03-16] MEDS: HYDROmorphone HCL PF 1 MG/ML VIAL IV PRN ×3 (03:50→20:09)
[2017-03-16] MEDS: SODIUM CHLORIDE 0.9% FLUSH 10 ML FLUSH IV FLUSH PRN (03:50)
[2017-03-16 06:32] LABS: AUTOMATED NEUTROPHIL # 9.8 TH/MM3 (1.8-7.7); BASOPHIL # 0.2 TH/MM3 (0-0.2); BASOPHIL % 1.9 % (0.0-2.0); EOSINOPHIL # 0.5 TH/MM3 (0-0.4); EOSINOPHIL % 3.9 % (0.0-4.0); HEMATOCRIT 27.2 % (35.0-46.0); LYMPH % 8.1 % (9.0-44.0); MEAN CORPUSCULAR HEMOGLOBIN 24.5 PG (27.0-34.0); MEAN CORPUSCULAR HGB CONC 31.8 % (32.0-36.0); MONO % 6.9 % (0.0-8.0); NEUT % 79.2 % (16.0-70.0); PLATELET COUNT 328 TH/MM3 (150-450); RED BLOOD COUNT 3.53 MIL/MM3 (4.00-5.30); RED CELL DISTRIBUTION WIDTH 20.4 % (11.6-17.2); WHITE BLOOD COUNT 12.4 TH/MM3 (4.0-11.0)
[2017-03-16 06:44] LABS: HEMO FLAGS AUTO DIFF
[2017-03-16 06:54] LABS: BICARBONATE 30.4 MEQ/L (21.0-32.0)
[2017-03-16 07:44] LABS: POTASSIUM 2.8 MEQ/L (3.5-5.1)
[2017-03-16 08:32] LABS: BANDS 10 % (0-6); CORRECTED NUCLEATED RBC 1 /100 WBC (0-0); EOSINOPHILS 3 % (0-4); NEUTROPHIL # MANUAL DIFF 10.4 TH/MM3 (1.8-7.7); POLYS (SEG NEUTROPHILS) 74 % (16-70); WBC DIFF SAMPLE 100
[2017-03-16 08:33] LABS: OVALOCYTES 1+ (NORMAL); PLATELET ESTIMATE SMEAR NORMAL (NORMAL); PLATELET MORPHOLOGY NORMAL (NORMAL); SCAN/DIFF FINAL DIFF MANUAL
[2017-03-16] MEDS: DOCUSATE SODIUM 50 MG/SENNA 8.6 MG TAB PO SCH ×2 (09:00→20:12)
[2017-03-16] MEDS: ALLOPURINOL 100 MG TAB PO SCH ×2 (09:00→20:13)
[2017-03-16] MEDS: MULTIVITAMIN TAB PO SCH (09:31)
[2017-03-16] MEDS: POTASSIUM CHLORIDE 10 MEQ CAP PO SCH ×3 (09:31→17:55)
[2017-03-16] MEDS: CHOLECALCIFEROL (VIT D3) 1000 UNIT TAB PO SCH (09:31)
[2017-03-16] MEDS: amLODIPine BESYLATE 5 MG TAB PO SCH (09:31)
[2017-03-16] MEDS: FERROUS SULFATE 325 MG (65 MG ELEMENTAL IRON) TAB PO SCH ×2 (09:31→20:12)
[2017-03-16] MEDS: HEPARIN 25,000 UNITS-D5W 250 ML - PREMIX IV SCH (09:33)
[2017-03-16] MEDS: PANTOPRAZOLE SOD 40 MG DELAYED RELEASE TAB PO SCH ×2 (09:34→20:12)
[2017-03-16] MEDS: SODIUM CHLORIDE 0.9% FLUSH 10 ML FLUSH IV FLUSH SCH ×2 (09:34→20:13)
[2017-03-16] MEDS: ONDANSETRON HCL 4 MG/2 ML VIAL IV PRN ×2 (09:35→20:18)
--- NOTE | 2017-03-16 09:35 | PD.CARD.PN ---
Subjective Subjective Remarks denies CV complaints Objective Vital Signs / I&O Vital Signs Date Time Temp Pulse Resp B/P Pulse Ox O2 Delivery O2 Flow Rate FiO2 03/16/17 08:00 98.4 105 20 136/66 95 03/16/17 04:00 98.5 108 20 133/75 94 03/16/17 00:00 98.3 108 22 144/67 94 03/15/17 21:15 97 Nasal Cannula 2.00 03/15/17 20:50 94 Nasal Cannula 1.00 03/15/17 20:00 98.4 104 22 164/70 94 03/15/17 20:00 100 03/15/17 16:00 98.0 106 18 134/69 94 03/15/17 12:16 94 Nasal Cannula 2.00 03/15/17 12:00 98.1 109 17 138/80 93 I/O 03/15/17 03/15/17 03/15/17 03/16/17 03/16/17 03/16/17 06:59 14:59 22:59 06:59 14:59 22:59 Intake Total 240 ml 365 ml 440 ml 602 ml 120 ml Balance 240 ml 365 ml 440 ml 602 ml 120 ml Intake Oral 240 ml 240 ml 240 ml 480 ml 120 ml IV Total 125 ml 200 ml 122 ml # Voids 1 3 1 3 # Bowel Movements 1 0 1 Physical Exam GENERAL: Morbidly obese patient in no apparent distress. NECK: No JVD. No carotid bruit. CARDIOVASCULAR: Tachycardic, regular rhythm. S1/S2 no murmur, rub, or gallop. RESPIRATORY: No accessory muscle use. Clear to auscultation. Breath sounds equal bilaterally. GASTROINTESTINAL: Abdomen soft, non-tender, nondistended. MUSCULOSKELETAL: Extremities without clubbing, cyanosis, or edema. Laboratory Laboratory Tests Test 03/16/17 05:55 White Blood Count 12.4 TH/MM3 Red Blood Count 3.53 MIL/MM3 Hemoglobin 8.6 GM/DL Hematocrit 27.2 % Mean Corpuscular Volume 77.0 FL Mean Corpuscular Hemoglobin 24.5 PG Mean Corpuscular Hemoglobin 31.8 % Concent Red Cell Distribution Width 20.4 % Platelet Count 328 TH/MM3 Mean Platelet Volume 8.1 FL Neutrophils (%) (Auto) 79.2 % Lymphocytes (%) (Auto) 8.1 % Monocytes (%) (Auto) 6.9 % Eosinophils (%) (Auto) 3.9 % Basophils (%) (Auto) 1.9 % Neutrophils # (Auto) 9.8 TH/MM3 Lymphocytes # (Auto) 1.0 TH/MM3 Monocytes # (Auto) 0.8 TH/MM3 Eosinophils # (Auto) 0.5 TH/MM3 Basophils # (Auto) 0.2 TH/MM3 CBC Comment AUTO DIFF Differential Total Cells 100 Counted Neutrophils % (Manual) 74 % Band Neutrophils % 10 % Lymphocytes % 8 % Monocytes % 5 % Eosinophils % 3 % Neutrophils # (Manual) 10.4 TH/MM3 Nucleated Red Blood Cells 1 /100 WBC Differential Comment FINAL DIFF MANUAL Platelet Estimate NORMAL Platelet Morphology Comment NORMAL Ovalocytes 1+ Activated Partial 63.0 SEC Thromboplast Time Sodium Level 137 MEQ/L Potassium Level 2.8 MEQ/L Chloride Level 98 MEQ/L Carbon Dioxide Level 30.4 MEQ/L Anion Gap 9 MEQ/L Blood Urea Nitrogen 5 MG/DL Creatinine 0.47 MG/DL Estimat Glomerular Filtration 172 ML/MIN Rate Random Glucose 94 MG/DL Calcium Level 8.2 MG/DL Magnesium Level 2.0 MG/DL Assessment and Plan Problem List: (1) Pulmonary embolism (2) Tachycardia (3) Hypertension (4) Bradycardia (5) Small bowel obstruction Assessment and Plan PE - on heparin tachycardia - likely multifactorial, anemia is worsening. Recommend work up for bleeding. Her blood pressure is well controlled hypokalemia - replete, KCl has already been ordered Ben Botello Mar 16, 2017 09:35
[2017-03-16] MEDS: POTASSIUM CHLOR 20 MEQ PREMIX 100 ML IV SCH ×2 (12:00→13:40)
--- NOTE | 2017-03-16 12:14 | HHI.PR ---
Subjective Subjective Notes 46yo female POD#6 laparoscopic lysis of adhesions. Tolerating diet, denies GI complaints. Doing well from a surgical standpoint. Being treated for PE Objective Vitals/I&O Vital Signs Date Time Temp Pulse Resp B/P Pulse Ox O2 Delivery O2 Flow Rate FiO2 03/16/17 10:01 2.00 03/16/17 10:01 94 21 03/16/17 08:00 98.4 105 20 136/66 03/15/17 21:15 Nasal Cannula Labs Laboratory Tests Test 03/16/17 05:55 White Blood Count 12.4 Red Blood Count 3.53 Hemoglobin 8.6 Hematocrit 27.2 Mean Corpuscular Volume 77.0 Mean Corpuscular Hemoglobin 24.5 Mean Corpuscular Hemoglobin 31.8 Concent Red Cell Distribution Width 20.4 Platelet Count 328 Mean Platelet Volume 8.1 Neutrophils (%) (Auto) 79.2 Lymphocytes (%) (Auto) 8.1 Monocytes (%) (Auto) 6.9 Eosinophils (%) (Auto) 3.9 Basophils (%) (Auto) 1.9 Neutrophils # (Auto) 9.8 Lymphocytes # (Auto) 1.0 Monocytes # (Auto) 0.8 Eosinophils # (Auto) 0.5 Basophils # (Auto) 0.2 CBC Comment AUTO DIFF Differential Total Cells 100 Counted Neutrophils % (Manual) 74 Band Neutrophils % 10 Lymphocytes % 8 Monocytes % 5 Eosinophils % 3 Neutrophils # (Manual) 10.4 Nucleated Red Blood Cells 1 Differential Comment FINAL DIFF MANUAL Platelet Estimate NORMAL Platelet Morphology Comment NORMAL Ovalocytes 1+ Activated Partial 63.0 Thromboplast Time Sodium Level 137 Potassium Level 2.8 Chloride Level 98 Carbon Dioxide Level 30.4 Anion Gap 9 Blood Urea Nitrogen 5 Creatinine 0.47 Estimat Glomerular Filtration 172 Rate Random Glucose 94 Calcium Level 8.2 Magnesium Level 2.0 Radiology Last [address] Angiography 03/13/17 0000 Signed Impressions: Service Date/Time: Monday, March 13, 2017 09:37 - CONCLUSION: 1. Examination quality is significantly degraded by respiratory motion artifact and to a lesser extent there is less than optimal opacification of the pulmonary arteries. There are 2 suspected filling defects, possibly representing PE, in the right segmental pulmonary arteries. Given the limitations described, consider performing a followup study when the patient is better able to cooperate with breath-holding before placing the patient on long-term anticoagulation therapy. 2. Bilateral lower lobe and mild right upper lobe airspace consolidation. Nato García MD Cardiovascular: Regular Abdomen: Post-op tenderness Extremities: Perfused Wound Wound : Wound Location: Abdomen Appearance: Clean & Dry A/P Assessment and Plan Continue with advancement of diet as tolerated Continue with frequent ambulation Hypokalemia - replacement ordered Clear to D/C from a surgical standpoint The exam, history, and the medical decision-making described in the above note were completed with the assistance of the mid-level provider. I reviewed and agree with the findings presented. I attest that I had a [id number] encounter with the patient on the same day, and personally performed and documented my assessment and findings in the medical record. Jeffery Vazquez Mar 16, 2017 12:14 Len Hill MD Mar 17, 2017 17:19
[2017-03-16] MEDS: LORazepam 2 MG/ML VIAL IV PUSH PRN (12:57)
[2017-03-16] MEDS: PCA - TOTAL MG MORPHINE DELIVERED PER SHIFT SCH ×3 (12:58→20:14)
--- NOTE | 2017-03-16 13:50 | HHI.PR ---
Subjective Remarks No new complaints Tolerating advanced diet. No abd pain +Flatus, +BM Objective Vitals Vital Signs Date Time Temp Pulse Resp B/P Pulse Ox O2 Delivery O2 Flow Rate FiO2 03/16/17 10:01 2.00 03/16/17 10:01 94 21 03/16/17 08:00 98.4 105 20 136/66 95 03/16/17 04:00 98.5 108 20 133/75 94 03/16/17 00:00 98.3 108 22 144/67 94 03/15/17 21:15 97 Nasal Cannula 2.00 03/15/17 20:50 94 Nasal Cannula 1.00 03/15/17 20:00 98.4 104 22 164/70 94 03/15/17 20:00 100 03/15/17 16:00 98.0 106 18 134/69 94 03/15/17 03/15/17 03/16/17 15:00 23:00 07:00 Intake Total 365 ml 440 ml 602 ml Balance 365 ml 440 ml 602 ml Intake Oral 240 ml 240 ml 480 ml IV Total 125 ml 200 ml 122 ml # Voids 3 1 3 # Bowel Movements 1 0 1 Result Diagram: 03/16/17 0555 03/16/17 0555 Other Results Laboratory Tests Test 03/14/17 03/15/17 03/16/17 18:00 03:45 05:55 Activated Partial 71.4 SEC 72.0 SEC 63.0 SEC Thromboplast Time White Blood Count 12.4 TH/MM3 Red Blood Count 3.53 MIL/MM3 Hemoglobin 8.6 GM/DL Hematocrit 27.2 % Mean Corpuscular Volume 77.0 FL Mean Corpuscular Hemoglobin 24.5 PG Mean Corpuscular Hemoglobin 31.8 % Concent Red Cell Distribution Width 20.4 % Platelet Count 328 TH/MM3 Mean Platelet Volume 8.1 FL Neutrophils (%) (Auto) 79.2 % Lymphocytes (%) (Auto) 8.1 % Monocytes (%) (Auto) 6.9 % Eosinophils (%) (Auto) 3.9 % Basophils (%) (Auto) 1.9 % Neutrophils # (Auto) 9.8 TH/MM3 Lymphocytes # (Auto) 1.0 TH/MM3 Monocytes # (Auto) 0.8 TH/MM3 Eosinophils # (Auto) 0.5 TH/MM3 Basophils # (Auto) 0.2 TH/MM3 CBC Comment AUTO DIFF Differential Total Cells 100 Counted Neutrophils % (Manual) 74 % Band Neutrophils % 10 % Lymphocytes % 8 % Monocytes % 5 % Eosinophils % 3 % Neutrophils # (Manual) 10.4 TH/MM3 Nucleated Red Blood Cells 1 /100 WBC Differential Comment FINAL DIFF MANUAL Platelet Estimate NORMAL Platelet Morphology Comment NORMAL Ovalocytes 1+ Sodium Level 137 MEQ/L Potassium Level 2.8 MEQ/L Chloride Level 98 MEQ/L Carbon Dioxide Level 30.4 MEQ/L Anion Gap 9 MEQ/L Blood Urea Nitrogen 5 MG/DL Creatinine 0.47 MG/DL Estimat Glomerular Filtration 172 ML/MIN Rate Random Glucose 94 MG/DL Calcium Level 8.2 MG/DL Magnesium Level 2.0 MG/DL Imaging Last Impressions CT Angiography 03/13/17 0000 Signed Impressions: Service Date/Time: Monday, March 13, 2017 09:37 - CONCLUSION: 1. Examination quality is significantly degraded by respiratory motion artifact and to a lesser extent there is less than optimal opacification of the pulmonary arteries. There are 2 suspected filling defects, possibly representing PE, in the right segmental pulmonary arteries. Given the limitations described, consider performing a followup study when the patient is better able to cooperate with breath-holding before placing the patient on long-term anticoagulation therapy. 2. Bilateral lower lobe and mild right upper lobe airspace consolidation. Nato García MD Chest X-Ray 03/12/17 0000 Signed Impressions: Service Date/Time: February 22:32 - CONCLUSION: Left lower lobe consolidation. Mando Mera MD Abdomen/Pelvis CT 03/10/17 0000 Signed Impressions: Service Date/Time: Friday, March 10, 2017 10:36 - CONCLUSION: 1. Worsening dilatation of the small bowel consistent with a distal small bowel obstruction. There is a caliber change associated with the small bowel within the anterior mid peritoneal cavity but without obstructing etiology observed. 2. Small volume ascites. 3. Cholelithiasis. 4. Bibasilar atelectasis. 5. Prior ventral hernia repair without recurrent hernia. Amando Ross Jr., MD Abdomen X-Ray 03/09/17 0000 Signed Impressions: Service Date/Time: Thursday, March 09, 2017 17:21 - CONCLUSION: Normal examination. Anthony Lobato MD Objective Remarks General: NAD, AAOx3 Chest: CTA Cardiac: Regular Abd: +BS, soft ND/NT Ext: No edema A/P Problem List: (1) Small bowel obstruction Status: Acute Plan: - Pt is a 46 y/o female with hx of gastric sleeve who presented to [facility] with abd pain, nausea and inability to tolerated PO intake. - CT Abd/pelvis (03/08) --> Small bowel obstruction which is probably partial not present on the prior examination. - Repeat CT Abd/pelvis (03/10) --> Worsening dilatation of the small bowel consistent with a distal small bowel obstruction. There is a caliber change associated with the small bowel within the anterior mid peritoneal cavity but without obstructing etiology observed. Small volume ascites. Cholelithiasis. Bibasilar atelectasis. Prior ventral hernia repair without recurrent hernia. - Pt was transferred to [facility] and underwent GILDA performed by Dr. Jeter () - Pt has been tolerating advanced diet - Dilaudid, hydrocodone prn - IV Protonix BID - Constipation precautions (2) Pulmonary embolism Status: Acute Plan: - Pt developed SOB a few days post-op - CT Angiogram (03/13) --> Examination quality is significantly degraded by respiratory motion artifact and to a lesser extent there is less than optimal opacification of the pulmonary arteries. There are 2 suspected filling defects, possibly representing PE, in the right segmental pulmonary arteries. - Pt was started on Heparin gtt - Pt recommended to be converted to Eliquis upon discharge - Pt able to be weaned off supplemental O2 (3) Bradycardia Status: Acute Plan: - Resolved - Pt now trending tachycardic likely related to pain - Appreciate input from cardiology - Consider lexiscan outpt after current issue have been resolved - Continue to observe on telemetry (4) Hypertension Status: Chronic Plan: - stable - Norvasc - prn Catapres (5) Hypokalemia Status: Acute Plan: - replete - BMP in AM Assessment and Plan Patient examined. Assessment and plan formulated with Magdalene Day PA-C. I agree with the above. s/p GILDA for sbo. PE chronic anemia s/p gastric sleeve. convert heparin to eliquis. f/u pcp replace kcl today iron/vit studies. f/u pcp. d/c in AM Magdalene Day 24, 2017 13:49 Orestes Torres MD Mar 16, 2017 15:08
--- NOTE | 2017-03-16 19:56 | HHI.PR ---
Subjective Remarks LATE ENTRY NOTE FOR 03/15/17 NOTE ENTERED 03/15/17 FAILED TO SAVE IN [employer] Pt tolerating clears and would like diet advanced. Objective Vitals Vital Signs Date Time Temp Pulse Resp B/P Pulse Ox O2 Delivery O2 Flow Rate FiO2 03/16/17 16:00 97.0 110 17 135/76 93 03/16/17 12:00 98.4 105 20 136/66 95 03/16/17 10:01 2.00 03/16/17 10:01 94 21 03/16/17 09:00 Room Air 03/16/17 08:00 98.4 105 20 136/66 95 03/16/17 04:00 98.5 108 20 133/75 94 03/16/17 00:00 98.3 108 22 144/67 94 03/15/17 21:15 97 Nasal Cannula 2.00 03/15/17 20:50 94 Nasal Cannula 1.00 03/15/17 20:00 98.4 104 22 164/70 94 03/15/17 20:00 100 03/15/17 03/15/17 03/16/17 15:00 23:00 07:00 Intake Total 365 ml 440 ml 602 ml Balance 365 ml 440 ml 602 ml Intake Oral 240 ml 240 ml 480 ml IV Total 125 ml 200 ml 122 ml # Voids 3 1 3 # Bowel Movements 1 0 1 Result Diagram: 03/16/17 0555 03/16/17 [address] Angiography 03/13/17 0000 Signed Impressions: Service Date/Time: Monday, March 13, 2017 09:37 - CONCLUSION: 1. Examination quality is significantly degraded by respiratory motion artifact and to a lesser extent there is less than optimal opacification of the pulmonary arteries. There are 2 suspected filling defects, possibly representing PE, in the right segmental pulmonary arteries. Given the limitations described, consider performing a followup study when the patient is better able to cooperate with breath-holding before placing the patient on long-term anticoagulation therapy. 2. Bilateral lower lobe and mild right upper lobe airspace consolidation. Nato García MD Chest X-Ray 03/12/17 0000 Signed Impressions: Service Date/Time: February 22:32 - CONCLUSION: Left lower lobe consolidation. Mando Mera MD Abdomen/Pelvis CT 03/10/17 0000 Signed Impressions: Service Date/Time: Friday, March 10, 2017 10:36 - CONCLUSION: 1. Worsening dilatation of the small bowel consistent with a distal small bowel obstruction. There is a caliber change associated with the small bowel within the anterior mid peritoneal cavity but without obstructing etiology observed. 2. Small volume ascites. 3. Cholelithiasis. 4. Bibasilar atelectasis. 5. Prior ventral hernia repair without recurrent hernia. Amando Ross Jr., MD Abdomen X-Ray 03/09/17 0000 Signed Impressions: Service Date/Time: Thursday, March 09, 2017 17:21 - CONCLUSION: Normal examination. Anthony Lobato MD Objective Remarks General: NAD, AAOx3 Chest: CTA Cardiac: Regular Abd: +BS, soft ND/NT Ext: No edema A/P Problem List: (1) Small bowel obstruction Status: Acute Plan: - Pt is a 46 y/o female with hx of gastric sleeve who presented to [facility] with abd pain, nausea and inability to tolerated PO intake. - CT Abd/pelvis (03/08) --> Small bowel obstruction which is probably partial not present on the prior examination. - Repeat CT Abd/pelvis (03/10) --> Worsening dilatation of the small bowel consistent with a distal small bowel obstruction. There is a caliber change associated with the small bowel within the anterior mid peritoneal cavity but without obstructing etiology observed. Small volume ascites. Cholelithiasis. Bibasilar atelectasis. Prior ventral hernia repair without recurrent hernia. - Pt was transferred to [facility] and underwent GILDA performed by Dr. Jeter () - Case d/w Dr. Salcedo (03/15/17). Will advance to soft diet - Dilaudid, hydrocodone prn - IV Protonix BID - Constipation precautions (2) Pulmonary embolism Status: Acute Plan: - Pt developed SOB a few days post-op - CT Angiogram (03/13) --> Examination quality is significantly degraded by respiratory motion artifact and to a lesser extent there is less than optimal opacification of the pulmonary arteries. There are 2 suspected filling defects, possibly representing PE, in the right segmental pulmonary arteries. - Pt was started on Heparin gtt - Pt recommended to be converted to Eliquis upon discharge - Pt able to be weaned off supplemental O2 (3) Bradycardia Status: Acute Plan: - Resolved - Pt now trending tachycardic likely related to pain - Appreciate input from cardiology - Consider lexiscan outpt after current issue have been resolved - Continue to observe on telemetry (4) Hypertension Status: Chronic Plan: - stable - Norvasc - prn Catapres (5) Hypokalemia Status: Acute Plan: - replete - BMP in AM Jarad Guillermo DO Mar 16, 2017 19:56
[2017-03-16] MEDS: METOPROLOL TARTRATE 25 MG TAB PO SCH (20:12)
[2017-03-16] MEDS: APIXABAN 5 MG TABLET PO SCH (20:13)
[2017-03-16 23:03] LABS: POTASSIUM 3.5 MEQ/L (3.5-5.1)
[2017-03-16 23:41] LABS: FERRITIN 98 NG/ML (8-252); TRANSFERRIN IRON PROFILE 174 MG/DL (200-360)
[2017-03-17] VITALS: BP 131/81; PULSE 107; RESP 17; TEMP 97.6; O2SAT 91
[2017-03-17] MEDS: LORazepam 2 MG/ML VIAL IV PUSH PRN (00:34)
[2017-03-17] MEDS: RESP: ALBUTEROL 2.5 MG/IPRATROPIUM 0.5 MG NEB (SCH) NEB ×5 (04:05→16:00)
[2017-03-17 05:53] LABS: APTT (PATIENT) 39.7 SEC (24.3-30.1)
[2017-03-17 08:00] VITALS: BP 123/79; PULSE 106; RESP 20; TEMP 98.1; O2SAT 95
[2017-03-17] MEDS: ALLOPURINOL 100 MG TAB PO SCH (09:00)
[2017-03-17] MEDS: DOCUSATE SODIUM 50 MG/SENNA 8.6 MG TAB PO SCH (09:00)
[2017-03-17] MEDS: FERROUS SULFATE 325 MG (65 MG ELEMENTAL IRON) TAB PO SCH (09:00)
[2017-03-17] MEDS: METOPROLOL TARTRATE 25 MG TAB PO SCH (09:08)
[2017-03-17] MEDS: PANTOPRAZOLE SOD 40 MG DELAYED RELEASE TAB PO SCH (09:08)
[2017-03-17] MEDS: APIXABAN 5 MG TABLET PO SCH (09:08)
[2017-03-17] MEDS: MULTIVITAMIN TAB PO SCH (09:09)
[2017-03-17] MEDS: ONDANSETRON HCL 4 MG/2 ML VIAL IV PRN (09:11)
[2017-03-17] MEDS: SODIUM CHLORIDE 0.9% FLUSH 10 ML FLUSH IV FLUSH SCH (09:12)
[2017-03-17 09:15] VITALS: PULSE 109
[2017-03-17] MEDS: CHOLECALCIFEROL (VIT D3) 1000 UNIT TAB PO SCH (09:18)
--- NOTE | 2017-03-17 10:27 | PD.PN.STU ---
Subjective Remarks Patient states feeling well, ready to head home Tolerating normal diet, mild nausea earlier today but not vomiting moving bowels, loose but solid No complaints of surgical site pain or irritation Requesting short term anxiety medication until she can follow up outpatient with Dr. Hernandez Objective Vitals Vital Signs Date Time Temp Pulse Resp B/P Pulse Ox O2 Delivery O2 Flow Rate FiO2 03/17/17 08:00 98.1 106 20 123/79 95 03/17/17 00:00 97.6 107 17 131/81 91 03/16/17 21:13 96 03/16/17 20:00 98.4 109 17 120/69 94 03/16/17 16:00 97.0 110 17 135/76 93 03/16/17 12:00 98.4 105 20 136/66 95 03/16/17 10:01 2.00 03/16/17 10:01 94 21 I/O 03/16/17 03/16/17 03/16/17 03/17/17 03/17/17 03/17/17 07:00 15:00 23:00 07:00 15:00 23:00 Intake Total 602 ml 484 ml 240 ml 240 ml 120 ml Balance 602 ml 484 ml 240 ml 240 ml 120 ml Intake Oral 480 ml 360 ml 240 ml 240 ml 120 ml IV Total 122 ml 124 ml # Voids 3 3 2 2 # Bowel Movements 1 2 Result Diagram: 03/16/17 0555 03/16/17 2140 Other Results Laboratory Tests Test 03/14/17 03/14/17 03/15/17 03/16/17 12:00 18:00 03:45 05:55 Activated Partial 73.2 SEC 71.4 SEC 72.0 SEC 63.0 SEC Thromboplast Time (24.3-30.1) (24.3-30.1) (24.3-30.1) (24.3-30.1) White Blood Count 12.4 TH/MM3 (4.0-11.0) Red Blood Count 3.53 MIL/MM3 (4.00-5.30) Hemoglobin 8.6 GM/DL (11.6-15.3) Hematocrit 27.2 % (35.0-46.0) Mean Corpuscular Volume 77.0 FL (80.0-100.0) Mean Corpuscular Hemoglobin 24.5 PG (27.0-34.0) Mean Corpuscular Hemoglobin 31.8 % Concent (32.0-36.0) Red Cell Distribution Width 20.4 % (11.6-17.2) Platelet Count 328 TH/MM3 (150-450) Mean Platelet Volume 8.1 FL (7.0-11.0) Neutrophils (%) (Auto) 79.2 % (16.0-70.0) Lymphocytes (%) (Auto) 8.1 % (9.0-44.0) Monocytes (%) (Auto) 6.9 % (0.0-8.0) Eosinophils (%) (Auto) 3.9 % (0.0-4.0) Basophils (%) (Auto) 1.9 % (0.0-2.0) Neutrophils # (Auto) 9.8 TH/MM3 (1.8-7.7) Lymphocytes # (Auto) 1.0 TH/MM3 (1.0-4.8) Monocytes # (Auto) 0.8 TH/MM3 (0-0.9) Eosinophils # (Auto) 0.5 TH/MM3 (0-0.4) Basophils # (Auto) 0.2 TH/MM3 (0-0.2) CBC Comment AUTO DIFF Differential Total Cells 100 Counted Neutrophils % (Manual) 74 % (16-70) Band Neutrophils % 10 % (0-6) Lymphocytes % 8 % (9-44) Monocytes % 5 % (0-8) Eosinophils % 3 % (0-4) Neutrophils # (Manual) 10.4 TH/MM3 (1.8-7.7) Nucleated Red Blood Cells 1 /100 WBC (0-0) Differential Comment FINAL DIFF MANUAL Platelet Estimate NORMAL (NORMAL) Platelet Morphology Comment NORMAL (NORMAL) Ovalocytes 1+ (NORMAL) Sodium Level 137 MEQ/L (136-145) Potassium Level 2.8 MEQ/L (3.5-5.1) Chloride Level 98 MEQ/L (98-107) Carbon Dioxide Level 30.4 MEQ/L (21.0-32.0) Anion Gap 9 MEQ/L (5-15) Blood Urea Nitrogen 5 MG/DL (7-18) Creatinine 0.47 MG/DL (0.50-1.00) Estimat Glomerular Filtration 172 ML/MIN Rate (>89) Random Glucose 94 MG/DL (74-106) Calcium Level 8.2 MG/DL (8.5-10.1) Magnesium Level 2.0 MG/DL (1.5-2.5) Test 03/16/17 03/17/17 21:40 05:15 Potassium Level 3.5 MEQ/L (3.5-5.1) Iron Level 20 MCG/DL (50-170) Total Iron Binding Capacity 244 MCG/DL (250-450) Percent Iron Saturation 8.2 % (20-50) Ferritin 98 NG/ML (8-252) Vitamin B12 Level GREATER THAN 2000 PG/ML (193-986) Folate 8.8 NG/ML (3.1-17.5) Activated Partial 39.7 SEC Thromboplast Time (24.3-30.1) Imaging Last Impressions CT Angiography 03/13/17 0000 Signed Impressions: Service Date/Time: Monday, March 13, 2017 09:37 - CONCLUSION: 1. Examination quality is significantly degraded by respiratory motion artifact and to a lesser extent there is less than optimal opacification of the pulmonary arteries. There are 2 suspected filling defects, possibly representing PE, in the right segmental pulmonary arteries. Given the limitations described, consider performing a followup study when the patient is better able to cooperate with breath-holding before placing the patient on long-term anticoagulation therapy. 2. Bilateral lower lobe and mild right upper lobe airspace consolidation. Nato García MD Chest X-Ray 03/12/17 0000 Signed Impressions: Service Date/Time: February 22:32 - CONCLUSION: Left lower lobe consolidation. Mando Mera MD Abdomen/Pelvis CT 03/10/17 0000 Signed Impressions: Service Date/Time: Friday, March 10, 2017 10:36 - CONCLUSION: 1. Worsening dilatation of the small bowel consistent with a distal small bowel obstruction. There is a caliber change associated with the small bowel within the anterior mid peritoneal cavity but without obstructing etiology observed. 2. Small volume ascites. 3. Cholelithiasis. 4. Bibasilar atelectasis. 5. Prior ventral hernia repair without recurrent hernia. Amando Ross Jr., MD Abdomen X-Ray 03/09/17 0000 Signed Impressions: Service Date/Time: Thursday, March 09, 2017 17:21 - CONCLUSION: Normal examination. Anthony Lobato MD Objective Remarks RRR no rubs murmurs gallops Lungs clear bilaterally Surgical sites without signs of redness, drainage, swelling. Covered with steristrips Right arm showing some residual swelling but decreased compared to previously, no erythema noted Active bowel sounds heard in all four quadrants Medications and IVs Current Medications Medications (Trade) Dose Ordered Sig/Patrice Route PRN Reason Start Time Stop Time Status Last Admin Dose Admin Senna/Docusate Sodium (Aurora-Colace) 1 tab BID PO 03/08/17 21:00 03/16/17 20:12 Magnesium Hydroxide (Milk Of Magnesia Liq) 30 ml Q12H PRN PO MILD - MODERATE CONSTIPATION 03/08/17 18:45 Sennosides (Senokot) 17.2 mg Q12H PRN PO MODERATE - SEVERE CONSTIPATION 03/08/17 18:45 Bisacodyl (Dulcolax Supp) 10 mg DAILY PRN RECTAL SEVERE CONSITIPATION 03/08/17 18:45 Lactulose (Lactulose Liq) 30 ml DAILY PRN PO SEVERE CONSITIPATION 03/08/17 18:45 Clonidine (Catapres) 0.1 mg Q6H PRN PO SBP> OR = 180, DBP> OR = 100 03/08/17 18:45 Allopurinol (Zyloprim) 100 mg BID PO 03/08/17 21:00 03/16/17 20:13 Cholecalciferol (Vitamin D3) 1,000 units DAILY PO 03/09/17 09:00 03/17/17 09:18 Ferrous Sulfate (Ferrous Sulfate) 325 mg BID PO 03/08/17 21:00 03/16/17 20:12 Multivitamins (Theragran) 1 tab DAILY PO 03/09/17 09:00 03/17/17 09:09 Simethicone 125 mg 125 mg QID PRN PO GAS RETENTION 03/09/17 23:15 03/09/17 23:22 Sodium Chloride (NS 1000 ml Inj) 1,000 ml @ 0 mls/hr Q10H IV 03/10/17 22:00 03/14/17 05:19 Sodium Chloride (NS Flush) 2 ml UNSCH PRN IV FLUSH FLUSH AFTER USING IV ACCESS 03/10/17 21:30 03/16/17 03:50 Sodium Chloride (NS Flush) 2 ml BID IV FLUSH 03/11/17 09:00 03/17/17 09:12 Ondansetron HCl (Zofran Inj) 4 mg Q4H PRN IV NAUSEA OR VOMITING 03/10/17 21:30 03/17/17 09:11 Diphenhydramine HCl (Benadryl) 25 mg Q6H PRN PO ITCHING 03/10/17 21:30 Naloxone HCl (Narcan Inj) 0.4 mg UNSCH PRN IV RESPIRATORY RATE LESS THAN 10 03/10/17 21:30 Morphine Sulfate (Morphine 1 Mg/ ml [employer]) 30 mg UNSCH IV 03/10/17 21:30 03/14/17 06:19 GEOTHER[employer]AL [employer]LECT[employer] ENG[employer]ER Dosage Infused (Pha) 1 Q8HR .XX 03/10/17 22:00 03/14/17 22:00 Promethazine HCl (Phenergan Supp) 25 mg Q6H PRN RECTAL NAUSEA 03/12/17 22:00 Heparin Sodium (Porcine) (Heparin Inj) 5,000 units UNSCH PRN IV aPTT less than 25 03/13/17 15:15 Heparin Sodium (Porcine) (Heparin Inj) 2,500 units UNSCH PRN IV aPTT 25 to 39 03/13/17 15:15 Promethazine HCl (Phenergan) 12.5 mg Q4H PRN PO NAUSEA OR VOMITING 03/14/17 11:45 Lorazepam (Ativan Inj) 0.5 mg Q6H PRN IV PUSH anxiety 03/14/17 18:15 03/17/17 00:34 Pantoprazole Sodium (Protonix) 40 mg Q12HR PO 03/15/17 21:00 03/17/17 09:08 Acetaminophen/ Hydrocodone Bitart (Hycet 325-7.5 Mg Liq) 15 ml Q6H PRN PO PAIN SCALE 4 TO 7 03/15/17 21:45 Hydromorphone HCl (Dilaudid Pf Inj) 0.5 mg Q6H PRN IV pain 8-10 03/16/17 00:45 03/16/17 20:09 Acetaminophen (Tylenol) 650 mg Q6H PRN PO pain 1-3 03/15/17 19:15 Metoprolol Tartrate (Lopressor) 25 mg Q12HR PO 03/16/17 21:00 03/17/17 09:08 Apixaban (Eliquis) 5 mg BID PO 03/16/17 21:00 03/17/17 09:08 A/P Assessment and Plan Problem List: (1) Small bowel obstruction Status: Acute Plan: - Pt is a 46 y/o female with hx of gastric sleeve who presented to [facility] with abd pain, nausea and inability to tolerated PO intake. - CT Abd/pelvis (03/08) --> Small bowel obstruction which is probably partial not present on the prior examination. - Repeat CT Abd/pelvis (03/10) --> Worsening dilatation of the small bowel consistent with a distal small bowel obstruction. There is a caliber change associated with the small bowel within the anterior mid peritoneal cavity but without obstructing etiology observed. Small volume ascites. Cholelithiasis. Bibasilar atelectasis. Prior ventral hernia repair without recurrent hernia. - Pt was transferred to [facility] and underwent GILDA performed by Dr. Jeter () - Pt has been tolerating advanced diet - Dilaudid, hydrocodone prn - IV Protonix BID - Constipation precautions 03/17 - Patient without complaints of abdominal pain, moving bowels well, tolerating normal diet - ok to discharge home, continue ppi daily - Followup Dr. Hill in 2 weeks (2) Pulmonary embolism Status: Acute Plan: - Pt developed SOB a few days post-op - CT Angiogram (03/13) --> Examination quality is significantly degraded by respiratory motion artifact and to a lesser extent there is less than optimal opacification of the pulmonary arteries. There are 2 suspected filling defects, possibly representing PE, in the right segmental pulmonary arteries. - Pt was started on Heparin gtt - Pt recommended to be converted to Eliquis upon discharge - Pt able to be weaned off supplemental O2 03/17 - Patient on room air without distress, O2 sat 95% room air - Stopping heparin today, will begin Eliquis 2-3 hours after - Continue Eliquis outpatient, follow up with PCP (3) Bradycardia Status: Acute Plan: - Resolved - Pt now trending tachycardic likely related to pain - Appreciate input from cardiology - Consider lexiscan outpt after current issue have been resolved - Continue to observe on telemetry 03/17 - Bradycardia has resolved, currently mildly tachycardic - DC amlodipine. Start metoprolol 25 bid per cardiology - f/u w/ pcp (4) Hypertension Status: Chronic Plan: - stable - Norvasc - prn Catapres 03/17 - DC amlodipine. Start metoprolol 25 bid (see above) (5) Microcytic Anemia Status: Chronic Plan: - Status post gastric bypass - MCV 77-78 throughout hospitalization - Iron studies show low ferritin and iron with low TIBC - Follow up w/ Dr. Hill regarding gastric sleeve targeted vitamins, impaired absorption of current treatment suspected (6) Anxiety Status: Chronic Plan: - Patient states it has been an issue for several years, ativan relieved symptoms during this hospitalization - Will Prescribe short course #20 0.5mg ativan prn until outpatient followup - Follow up outpatient within next few weeks with pcp to determine rn long term care treatment plan (7) Hypokalemia Status: Acute Plan: - replete - BMP in AM 03/17 - Currently 3.5 - Likely to resolve with normal diet - Suggest repeat labs [address] Hill Assessment and Plan Patient examined. s/p GILDA for sbo PE chronic anemia s/p gastric sleeve convert heparin to eliquis. f/u pcp Followup potassium w/ labs 2 wks iron/vit studies evident low iron levels, discuss w/ Dr. Hill for absorption issues s/p gastric sleeve Patient ok to discharge to home Makayla Pearl M3 Mar 17, 2017 10:27
[2017-03-17 11:00] VITALS: BP 138/76; PULSE 106; RESP 18; TEMP 99.4; O2SAT 95
[2017-03-17] MEDS ORDERED: APIX5TAB PO (11:16)
--- NOTE | 2017-03-17 11:29 | HHI.DCPOC ---
Discharge Care Plan Diagnosis: (1) Small bowel obstruction (2) Pulmonary embolism (3) Tachycardia Goals to Promote Your Health * To prevent worsening of your condition and complications * To maintain your health at the optimal level Directions to Meet Your Goals Take your medications as prescribed Follow your dietary instruction Follow activity as directed Keep your appointments as scheduled Take your immunizations and boosters as scheduled If your symptoms worsen call your PCP, if no PCP go to Urgent Care Center or Emergency Room Smoking is Dangerous to Your Health. Avoid second hand smoke Call the 24-hour hour crisis hotline for domestic abuse at Magdalene Day Mar 17, 2017 11:29
[2017-03-17] MEDS: PCA - TOTAL MG MORPHINE DELIVERED PER SHIFT SCH (11:34)
--- NOTE | 2017-03-17 11:36 | HHI.DS ---
Discharge Summary Admission Date Mar 10, 2017 at 10:12 Discharge Date: Mar 17, 2017 Admitting Diagnosis small bowel obstruction/bradycardia (1) Small bowel obstruction Diagnosis: Principal (2) Pulmonary embolism Diagnosis: Secondary (3) Bradycardia Diagnosis: Secondary (4) Hypertension Diagnosis: Secondary (5) Hypokalemia Diagnosis: Secondary Consultants Dr. Len Hill - General Surgery Dr. Jayme Nava - Cardiology Procedures Laparoscopic GILDA performed by Dr. Jeter (03/10/17) Brief History 46 y/o black female presents to er with 2 days progressive abdominal pain with constant nausea and vomit ,has been unable to keep anything down,patient did have small piece of chicken before episodes and did have sleve procedure done few years ago. In er had CT scan which showed small bowel partial obstruction will admit to observation pain and nausea control. CBC/BMP: 03/16/17 0555 03/16/17 2140 Significant Findings Laboratory Tests Test 03/14/17 03/14/17 03/15/17 03/16/17 12:00 18:00 03:45 05:55 Activated Partial 73.2 SEC 71.4 SEC 72.0 SEC 63.0 SEC Thromboplast Time (24.3-30.1) (24.3-30.1) (24.3-30.1) (24.3-30.1) White Blood Count 12.4 TH/MM3 (4.0-11.0) Red Blood Count 3.53 MIL/MM3 (4.00-5.30) Hemoglobin 8.6 GM/DL (11.6-15.3) Hematocrit 27.2 % (35.0-46.0) Mean Corpuscular Volume 77.0 FL (80.0-100.0) Mean Corpuscular Hemoglobin 24.5 PG (27.0-34.0) Mean Corpuscular Hemoglobin 31.8 % Concent (32.0-36.0) Red Cell Distribution Width 20.4 % (11.6-17.2) Neutrophils (%) (Auto) 79.2 % (16.0-70.0) Lymphocytes (%) (Auto) 8.1 % (9.0-44.0) Neutrophils # (Auto) 9.8 TH/MM3 (1.8-7.7) Eosinophils # (Auto) 0.5 TH/MM3 (0-0.4) Neutrophils % (Manual) 74 % (16-70) Band Neutrophils % 10 % (0-6) Lymphocytes % 8 % (9-44) Neutrophils # (Manual) 10.4 TH/MM3 (1.8-7.7) Nucleated Red Blood Cells 1 /100 WBC (0-0) Ovalocytes 1+ (NORMAL) Potassium Level 2.8 MEQ/L (3.5-5.1) Blood Urea Nitrogen 5 MG/DL (7-18) Creatinine 0.47 MG/DL (0.50-1.00) Calcium Level 8.2 MG/DL (8.5-10.1) Test 03/16/17 03/17/17 21:40 05:15 Iron Level 20 MCG/DL (50-170) Total Iron Binding Capacity 244 MCG/DL (250-450) Percent Iron Saturation 8.2 % (20-50) Vitamin B12 Level GREATER THAN 2000 PG/ML (193-986) Activated Partial 39.7 SEC Thromboplast Time (24.3-30.1) Imaging Last Impressions CT Angiography 03/13/17 0000 Signed Impressions: Service Date/Time: Monday, March 13, 2017 09:37 - CONCLUSION: 1. Examination quality is significantly degraded by respiratory motion artifact and to a lesser extent there is less than optimal opacification of the pulmonary arteries. There are 2 suspected filling defects, possibly representing PE, in the right segmental pulmonary arteries. Given the limitations described, consider performing a followup study when the patient is better able to cooperate with breath-holding before placing the patient on long-term anticoagulation therapy. 2. Bilateral lower lobe and mild right upper lobe airspace consolidation. Nato García MD Chest X-Ray 03/12/17 0000 Signed Impressions: Service Date/Time: February 22:32 - CONCLUSION: Left lower lobe consolidation. Mando Mera MD Abdomen/Pelvis CT 03/10/17 0000 Signed Impressions: Service Date/Time: Friday, March 10, 2017 10:36 - CONCLUSION: 1. Worsening dilatation of the small bowel consistent with a distal small bowel obstruction. There is a caliber change associated with the small bowel within the anterior mid peritoneal cavity but without obstructing etiology observed. 2. Small volume ascites. 3. Cholelithiasis. 4. Bibasilar atelectasis. 5. Prior ventral hernia repair without recurrent hernia. Amando Ross Jr., MD Abdomen X-Ray 03/09/17 0000 Signed Impressions: Service Date/Time: Thursday, March 09, 2017 17:21 - CONCLUSION: Normal examination. Anthony Lobato MD PE at Discharge General: NAD, AAOx3 Chest: CTA Cardiac: Regular Abd: +BS, soft ND/NT Ext: No edema Hospital Course Pt is a 46 y/o female with hx of gastric sleeve who presented to [facility] with abd pain, nausea and inability to tolerated PO intake. CT Abd/pelvis (03/08) --> Small bowel obstruction which is probably partial not present on the prior examination. Repeat CT Abd/pelvis (03/10) --> Worsening dilatation of the small bowel consistent with a distal small bowel obstruction. There is a caliber change associated with the small bowel within the anterior mid peritoneal cavity but without obstructing etiology observed, small volume ascites, cholelithiasis, bibasilar atelectasis, and prior ventral hernia repair without recurrent hernia. Pt was transferred to [facility] and underwent Laparoscopic GILDA performed by Dr. Jeter (03/10/17). Pts diet was slowly advanced and she has been tolerating advanced diet. Following admission pt was noted to be bradycardic. EKG done on admission showed sinus bradycardia. Repeat ECG post-operative showed resolution of bradycardia and dynamic T wave change in the anterior leads. Pt then began trending tachycardic. Pt developed SOB as well. Cardiology was consulted. CT Angiogram (03/13) --> Examination quality is significantly degraded by respiratory motion artifact and to a lesser extent there is less than optimal opacification of the pulmonary arteries. There are 2 suspected filling defects, possibly representing PE, in the right segmental pulmonary arteries. Pt was started on Heparin gtt. Pt was converted to Eliquis on 03/16 and will continue this as an outpt. Pt was able to be weaned off supplemental O2. Her tachycardia was felt to be multifactorial, related to the PE, pain and anemia. Pt was started on Metoprolol 25mg po BID on 03/16 and this will be continued as an outpt per Cardiology. She will need f/u with [facility] Cardiology in 2 weeks Pt will need f/u with her PCP, Dr. Hernandez, in 1 week She will need f/u with Dr. Martin in 2 weeks. Pt Condition on Discharge: Stable Discharge Disposition: Discharge Home Discharge Instructions DIET: Follow Instructions for: Heart Healthy Diet Activities you can perform: Shower Only-No Bath Activities to Avoid: Contact Sports, Lifting/Bending, Weight Bearing, Strenuous Activity Other Activity Instructions: Activity restriction per General Surgery Follow up Referrals: PCP Follow-up - [address] Hernandez Surgical - 2 Weeks with Len Hill MD New Medications: Hydromorphone (Dilaudid) 2 Mg Tab 2 MG PO Q4H PRN Pain Management #30 Ref 0 TAB Apixaban (Eliquis) 5 Mg Tab 5 MG PO BID PE #62 TAB Continued Medications: Allopurinol (Allopurinol) 100 Mg Tab 100 MG PO BID Gout #30 Ref 0 TAB Cholecalciferol (Vitamin D-1000) 1,000 Unit Tab 1000 UNITS PO DAILY Nutritional Supplement #1 Ref [address] (Ferrous Sulfate DR) 324 Mg Tabdr 324 MG PO BID Nutritional Supplement #30 Ref 0 TAB Multiple Vitamin (Multiple Vitamin) 1 Tab 1 TAB PO DAILY Nutritional Supplement Ref 0 TAB Pantoprazole (Protonix) 40 Mg Tab 40 MG PO DAILY Ulcer Prevention #30 Ref 0 TAB Magdalene Day Mar 17, 2017 11:36 Orestes Torres MD Mar 17, 2017 15:21
[2017-03-17] MEDS ORDERED: METO25TA3 PO (11:37)
[2017-03-17] MEDS ORDERED: LORA-392 PO (12:57)
[2017-03-17] MEDS ORDERED: POTASSIUM CHLORIDE 20 MEQ CONTROLLED RELEASE TAB PO ONE (13:00)
[2017-03-17] MEDS ORDERED: DILA2TAB2 PO (14:42)
== END 2017-03-17 16:33 | disposition home or self-care (01) | DRG 335 ==
LOC: PHED 13:38 → PHEDA 17:41 → PH5A 20:34 → OBSVTOIN 03-10 10:12 → N07B 03-10 16:20
PROVIDERS: ADMIT Hospitalist; ATTEND Hospitalist
PROC: 0DN84ZZ Release Small Intestine, Percutaneous Endoscopic Approach (ICD-10-PCS; principal; 2017-03-10 17:44)
DX: K56.60 Unspecified intestinal obstruction (principal); I26.99 Other pulmonary embolism without acute cor pulmonale; J98.11 Atelectasis; R18.8 Other ascites; I10 Essential (primary) hypertension; E87.6 Hypokalemia; D50.9 Iron deficiency anemia, unspecified; K66.0 Peritoneal adhesions (postprocedural) (postinfection); K21.9 Gastro-esophageal reflux disease without esophagitis; K80.20 Calculus of gallbladder without cholecystitis without obstruction; M10.9 Gout, unspecified; M19.90 Unspecified osteoarthritis, unspecified site; F41.9 Anxiety disorder, unspecified; Z98.84 Bariatric surgery status; R00.1 Bradycardia, unspecified; R00.0 Tachycardia, unspecified
CPT/HCPCS: 71010; 71275; 74000; 74177; 76937; 80048; 80053; 81001; 82550; 82607; 82728; 82746; 83540; 83550; 83690; 83735; 84132; 84484; 84702; 85007; 85025; 85027; 85610; 85730; 93005; 94620; 94640; 94664; C9113; G0378; J0131; J0690; J1170; J1644; J1650; J1940; J2060; J2250; J2270; J2370; J2405; J2710; J3010; J3480; J7030; J7120; Q9963; Q9967

== ENCOUNTER 2017-12-14 09:15 | Emergency (ER) | payer OTHER ==
[~2017-12-14] VITALS: Ht 172.7 cm; Wt 133.0 kg
[~2017-12-14 09:15] MED LIST changes: +APIX5TAB PO; -CHLO25CA2 PO; +DILA2TAB4 PO; -FERR1TAB36 PO; +FERR324T4 PO; -K-TA10TA PO; +LORA-392 PO; +METO25TA3 PO; -POTA10PO PO
[2017-12-14 09:23] VITALS: BP 135/59; PULSE 58; RESP 15; TEMP 97.5; O2SAT 100
[2017-12-14] MEDS ORDERED: AMIO0.1T PO (09:27)
[2017-12-14] MEDS ORDERED: SODIUM CHLOR 0.9% 1000 ML INJ 1,000 ML IV SCH (09:40)
[2017-12-14] MEDS ORDERED: ONDANSETRON HCL 4 MG/2 ML VIAL IVP ONE (09:45)
[2017-12-14] MEDS ORDERED: MORPHINE SULFATE 8 MG/ML INJ IV PUSH ONE (09:45)
[2017-12-14] MEDS ORDERED: SODIUM CHLORIDE 0.9% FLUSH 10 ML FLUSH IV FLUSH PRN (09:45)
[2017-12-14 10:14] LABS: AUTOMATED NEUTROPHIL # 2.2 TH/MM3 (1.8-7.7); BASOPHIL % 0.9 % (0.0-2.0); EOSINOPHIL # 0.1 TH/MM3 (0-0.4); EOSINOPHIL % 2.4 % (0.0-4.0); HEMATOCRIT 37.5 % (35.0-46.0); HEMOGLOBIN 12.2 GM/DL (11.6-15.3); LYMPH % 45.9 % (9.0-44.0); LYMPHOCYTE # 2.3 TH/MM3 (1.0-4.8); MEAN CELL VOLUME 86.2 FL (80.0-100.0); MEAN CORPUSCULAR HEMOGLOBIN 28.1 PG (27.0-34.0); MEAN CORPUSCULAR HGB CONC 32.6 % (32.0-36.0); MEAN PLATELET VOLUME 7.9 FL (7.0-11.0); MONO % 7.1 % (0.0-8.0); MONOCYTE # 0.4 TH/MM3 (0-0.9); NEUT % 43.7 % (16.0-70.0); PLATELET COUNT 405 TH/MM3 (150-450); RED BLOOD COUNT 4.35 MIL/MM3 (4.00-5.30); RED CELL DISTRIBUTION WIDTH 17.2 % (11.6-17.2)
[2017-12-14] MEDS ORDERED: IOHEXOL 350 MG/ML 10 ML VIAL (for RAD DIAG) IVCONTRAST ONE (10:15)
[2017-12-14 10:35] LABS: ALKALINE PHOSPHATASE 75 U/L (45-117); ALT (GPT) 13 U/L (10-53); TOTAL BILIRUBIN ADULT 0.3 MG/DL (0.2-1.0); TOTAL PROTEIN 7.6 GM/DL (6.4-8.2)
--- NOTE | 2017-12-14 10:40 | RADRPT ---
EXAM DATE/TIME: 12/14/2017 10:10 [place] COMPARISON: CT ABDOMEN & PELVIS W CONTRAST, March 10, 2017, 10:36. INDICATIONS : Abdominal pain IV CONTRAST: 97 cc Omnipaque 350 (iohexol) IV ORAL CONTRAST: No oral contrast ingested. RADIATION DOSE: 23.78 CTDIvol (mGy) ; Patient body habitus MEDICAL HISTORY : Hypertension. SURGICAL HISTORY : Gastric sleeve, oopherectomy ENCOUNTER: Initial ACUITY: 1 day PAIN SCALE: 10/10 LOCATION: upper quadrant TECHNIQUE: Volumetric scanning of the abdomen and pelvis was performed. Using automated exposure control and ad justment of the mA and/or kV according to patient size, radiation dose was kept as low as reasonably achievable to obtain optimal diagnostic quality images. DICOM format image data is available electro nically for review and comparison. FINDINGS: LOWER LUNGS: The visualized lower lungs are clear. LIVER: Homogeneous density without lesion. There is no dilation of the biliary tree. No calcified gallston es. On the prior study, there was contrast identified in the gallbladder lumen with multiple noncalci fied gallstones, however. SPLEEN: Normal size without lesion. PANCREAS: Within normal limits. KIDNEYS: Normal in size and shape. There is no mass, stone or hydronephrosis. Stable bilateral renal cortical cysts ADRENAL GLANDS: Within normal limits. VASCULAR: There is no aortic aneurysm. BOWEL/MESENTERY: On the prior study, multiple dilated small bowel loops suggesting small bowel extraction with ascites . This has resolved. No findings of obstruction currently. Line of surgical cassidy along the greater curvature the stomach characteristic of prior gastric sleeve. Second line of cassidy identified in t he right lower abdominal quadrant suggesting prior bowel surgery in this location. ABDOMINAL WALL: Prior mesh repair of a midline anterior abdominal wall hernia. No recurrence. RETROPERITONEUM: There is no lymphadenopathy. BLADDER: No wall thickening or mass. REPRODUCTIVE: 2.2 cm cyst in the right adnexal region likely associated with the right ovary. INGUINAL: There is no lymphadenopathy or hernia. MUSCULOSKELETAL: Within normal limits for patient age. CONCLUSION: 1. I do not see an acute intracranial or pelvic process to explain current clinical symptoms. In fact , findings of bowel obstruction and ascites seen previously has resolved. 2. Postsurgical changes of gastric sleeve and bowel surgery in the right lower abdominal quadrant. 3. No calcified gallstones. Noncalcified stones were identified on the prior study with some contrast in the gallbladder lumen. 4. Stable, benign-appearing renal cortical cysts bilaterally. Prior anterior abdominal wall mesh repa ir with no recurrent hernia. Adebayo Flores MD on December 14, 2017 at 10:23 Board Certified Radiologist. This report was verified electronically.
[2017-12-14 10:42] LABS: ALBUMIN 3.1 GM/DL (3.4-5.0); BICARBONATE 23.2 MEQ/L (21.0-32.0); BLOOD UREA NITROGEN 10 MG/DL (7-18); CALCIUM 8.6 MG/DL (8.5-10.1); CHLORIDE 108 MEQ/L (98-107); CREATININE 0.82 MG/DL (0.50-1.00); GLOMERULAR FILTRATION RATE 90 ML/MIN (>89); GLUCOSE,RANDOM 112 MG/DL (74-106); SODIUM (NA) 140 MEQ/L (136-145)
[2017-12-14 10:45] LABS: AST (GOT) 18 U/L (15-37)
--- NOTE | 2017-12-14 10:57 | PD ---
HPI Chief Complaint: Abdominal Pain Time Seen by Provider: 09:40 Travel History International Travel<30 days: No Contact w/Intl Traveler<30days: No Traveled to known affect area: No History of Present Illness HPI 47-year-old female complains of abdominal pain. Location is epigastric. She states it started somewhat suddenly while she was at work today. She states it reminds her of a prior bowel obstruction. Pain is constant. It is worse with palpation. Patient vomited once. Associated symptoms include nausea. No fever. Associated symptoms include diaphoresis. Patient reports a history of multiple abdominal surgeries including gastric sleeve done by Dr. Tyler. PFSH Past Medical History Anemia: Yes Cancer: No Cardiovascular Problems: Yes (HTN) Diabetes: No Diminished Hearing: No Endocrine: No Gastrointestinal Disorders: Yes (GERD, N/V DURING MENSES, H/O BOWEL OBTRUCTION) GERD: Yes Gout: Yes Genitourinary: No Hepatitis: No Hiatal Hernia: No Hypertension: Yes Immune Disorder: No Medical other: Yes (PE) Musculoskeletal: Yes (GOUT) Neurologic: No Psychiatric: No Reproductive: No Respiratory: Yes (ASTHMA) Thyroid Disease: No ?: Not : 5 Para: 5 Ovarian Cysts: Yes (r ovary removed) Tubal Ligation: Yes Past Surgical History Abdominal Surgery: Yes (HERNIA REPAIR X 3, GASTRIC SLEEVE/BYPASS 2013) AICD: No Gynecologic Surgery: Yes (OOPHORECTOMY R OVARY, TUBAL LIGATION) Joint Replacement: No Pacemaker: No Thoracic Surgery: Yes ("DUCTS CLEANED OUT" EMILY BREASTS D/T MASTITIS ) Other Surgery: Yes Social History Alcohol Use: No Tobacco Use: No Substance Use: No Allergies-Medications (Allergen,Severity, Reaction): Coded Allergies: meloxicam (Unverified Allergy, Intermediate, ITCHING, 12/14/17) benazepril (Unverified Allergy, Unknown, Swelling, 12/14/17) captopril (Unverified Allergy, Unknown, Swelling, 12/14/17) enalaprilat (Unverified Allergy, Unknown, Swelling, 12/14/17) fosinopril (Unverified Allergy, Unknown, Swelling, 12/14/17) lisinopril (Unverified Allergy, Unknown, Swelling, 12/14/17) quinapril (Unverified Allergy, Unknown, Swelling, 12/14/17) oxycodone (Unverified Adverse Reaction, Intermediate, HALLUCINATIONS, 12/14) Reported Meds & Prescriptions Reported Meds & Active Scripts Active Ativan (Lorazepam) 0.5 Mg Tab 0.5 Mg PO BID PRN Eliquis (Apixaban) 5 Mg Tab 5 Mg PO BID Reported Amiodarone (Amiodarone HCl) 100 Mg Tab Unknown Dose PO BID Ferrous Sulfate DR (Ferrous Sulfate) 324 Mg Tabdr 324 Mg PO BID Protonix (Pantoprazole Sodium) 40 Mg Tab 40 Mg PO DAILY Vitamin D-1000 (Cholecalciferol) 1,000 Unit Tab 1,000 Units PO DAILY Review of Systems Except as stated in HPI: all other systems reviewed are Neg General / Constitutional: No: Fever Physical Exam Narrative GENERAL: 47-year-old female well-nourished well-developed pleasant SKIN: Warm and dry. HEAD: Atraumatic. Normocephalic. EYES: Pupils equal and round. No scleral icterus. No injection or drainage. ENT: No nasal bleeding or discharge. Mucous membranes pink and moist. NECK: Trachea midline. No JVD. CARDIOVASCULAR: Regular rate and rhythm. RESPIRATORY: No accessory muscle use. Clear to auscultation. Breath sounds equal bilaterally. GASTROINTESTINAL: Abdomen soft, non-tender, nondistended. Hepatic and splenic margins not palpable. MUSCULOSKELETAL: Extremities without clubbing, cyanosis, or edema. No obvious deformities. NEUROLOGICAL: Awake and alert. No obvious cranial nerve deficits. Motor grossly within normal limits. Five out of 5 muscle strength in the arms and legs. Normal speech. PSYCHIATRIC: Appropriate mood and affect; insight and judgment normal. Data Data Last Documented VS Vital Signs Date Time Temp Pulse Resp B/P (MAP) Pulse Ox O2 Delivery O2 Flow Rate FiO2 12/14/17 09:23 97.5 58 15 135/59 (84) 100 Room Air Orders Orders Electrocardiogram (12/14/17 ) Complete Blood Count With Diff (12/14/17 09:40) Comprehensive Metabolic Panel (12/14/17 09:40) Lipase (12/14/17 09:40) Lactic Acid (12/14/17 09:40) Urinalysis - C+S If Indicated (12/14/17 09:40) Ct Abd/Pel W Iv Contrast(Rout) (12/14/17 09:40) Iv Access Insert/Monitor (12/14/17 09:40) Ecg Monitoring (12/14/17 09:40) Oximetry (12/14/17 09:40) Ondansetron Inj (Zofran Inj) (12/14/17 09:45) Sodium Chlor 0.9% 1000 Ml Inj (Ns 1000 M (12/14/17 09:40) Sodium Chloride 0.9% Flush (Ns Flush) (12/14/17 09:45) Morphine Inj (Morphine Inj) (12/14/17 09:45) Iohexol 350 Inj (Omnipaque 350 Inj) (12/14/17 10:15) Al-Mag Hy-Si 40-40-4 Mg/Ml Liq (Mag-Al P (12/14/17 12:15) Lidocaine 2% Viscous (Xylocaine 2% Visco (12/14/17 12:15) Labs Laboratory Tests Test 12/14/17 09:51 12/14/17 11:48 White Blood Count 5.0 TH/MM3 Red Blood Count 4.35 MIL/MM3 Hemoglobin 12.2 GM/DL Hematocrit 37.5 % Mean Corpuscular Volume 86.2 FL Mean Corpuscular Hemoglobin 28.1 PG Mean Corpuscular Hemoglobin Concent 32.6 % Red Cell Distribution Width 17.2 % Platelet Count 405 TH/MM3 Mean Platelet Volume 7.9 FL Neutrophils (%) (Auto) 43.7 % Lymphocytes (%) (Auto) 45.9 % Monocytes (%) (Auto) 7.1 % Eosinophils (%) (Auto) 2.4 % Basophils (%) (Auto) 0.9 % Neutrophils # (Auto) 2.2 TH/MM3 Lymphocytes # (Auto) 2.3 TH/MM3 Monocytes # (Auto) 0.4 TH/MM3 Eosinophils # (Auto) 0.1 TH/MM3 Basophils # (Auto) 0.0 TH/MM3 CBC Comment DIFF FINAL Differential Comment Blood Urea Nitrogen 10 MG/DL Creatinine 0.82 MG/DL Random Glucose 112 MG/DL Total Protein 7.6 GM/DL Albumin 3.1 GM/DL Calcium Level 8.6 MG/DL Alkaline Phosphatase 75 U/L Aspartate Amino Transf (AST/SGOT) 18 U/L Alanine Aminotransferase (ALT/SGPT) 13 U/L Total Bilirubin 0.3 MG/DL Sodium Level 140 MEQ/L Potassium Level 4.2 MEQ/L Chloride Level 108 MEQ/L Carbon Dioxide Level 23.2 MEQ/L Anion Gap 9 MEQ/L Estimat Glomerular Filtration Rate 90 ML/MIN Lactic Acid Level 2.0 mmol/L Lipase 62 U/L Urine Color LIGHT-YELLOW Urine Turbidity CLEAR Urine pH 8.0 Urine Specific [place] GREATER THAN 1.050 Urine Protein TRACE mg/dL Urine Glucose (UA) NEG mg/dL Urine Ketones NEG mg/dL Urine Occult Blood NEG Urine Nitrite NEG Urine Bilirubin NEG Urine Urobilinogen LESS THAN 2.0 MG/DL Urine Leukocyte Esterase NEG Urine RBC 1 /hpf Urine WBC 1 /hpf Urine Squamous Epithelial Cells <1 /hpf Urine Bacteria RARE /hpf Microscopic Urinalysis Comment CULT NOT INDICATED MDM Medical Decision Making Medical Screen Exam Complete: Yes Emergency Medical Condition: Yes Medical Record Reviewed: Yes Differential Diagnosis Constipation, Gastritis, Acute Cholecystitis, Biliary Colic, Pancreatitis, CRAMER , Hepatitis, Bowel Obstruction, Cystitis, Mesenteric Ischemia, AAA, Appendicitis , Renal Stone/Hydronephrosis, GERD, perforated viscous Narrative Course CBC & BMP Diagram 12/14/17 09:51 Total Protein 7.6, Albumin 3.1 L, Calcium Level 8.6, Alkaline Phosphatase 75, Aspartate Amino Transf (AST/SGOT) 18, Alanine Aminotransferase (ALT/SGPT) 13, Total Bilirubin 0.3 Lipase normal Lactic acid 2.0 Last Impressions Abdomen/Pelvis CT 12/14/17 0940 Signed Impressions: Service Date/Time: Thursday, December 14, 2017 10:10 - CONCLUSION: 1. I do not see an acute intracranial or pelvic process to explain current clinical symptoms. In fact, findings of bowel obstruction and ascites seen previously has resolved. 2. Postsurgical changes of gastric sleeve and bowel surgery in the right lower abdominal quadrant. 3. No calcified gallstones. Noncalcified stones were identified on the prior study with some contrast in the gallbladder lumen. 4. Stable, benign-appearing renal cortical cysts bilaterally. Prior anterior abdominal wall mesh repair with no recurrent hernia. Adebayo Flores MD Pain is controlled. The relative absence of otherwise identifiable etiologies suggests gastritis, potentially constipation. With pain have resolved. The patient is ready for discharge. Diagnosis Primary Impression: Abdominal pain Qualified Codes: R10.13 - Epigastric pain Additional Impression: Nausea & vomiting Qualified Codes: R11.2 - Nausea with vomiting, unspecified Referrals: Primary Care Physician call for appointment Med/Other Pt SpecificInfo: No Change to Meds Disposition: 01 DISCHARGE HOME Condition: Stable Daniel Ramirez MD Dec 14, 2017 10:57
[2017-12-14 11:59] LABS: BACTERIA, URINE RARE /hpf; BILIRUBIN, URINE NEG (NEG); BLOOD, URINE NEG (NEG); GLUCOSE,URINE NEG (NEG); KETONE, URINE NEG (NEG); NITRITE,URINE NEG (NEG); SQUAMOUS EPITHELIAL CELL URINE <1 /hpf (0-5); URINE COLOR LIGHT-YELLOW (YELLW/STRAW); URINE LEUKOCYTE ESTERASE NEG (NEG)
[2017-12-14] MEDS ORDERED: ALUMINUM/MAGNESIUM/SIMETH 30 ML CUP PO ONE (12:15)
[2017-12-14] MEDS ORDERED: LIDOCAINE VISCOUS 2% SOLN 15 ML UDC PO ONE (12:15)
[2017-12-14] MEDS ORDERED: ZOFR4TAB3 SL (12:16)
[2017-12-14] MEDS ORDERED: GAVISUS2 PO (12:16)
--- NOTE | 2017-12-14 20:58 | EKG ---
Date Performed: 12/14/2017 Time Performed: 09:30:45 PTAGE: 47 years EKG: SINUS BRADYCARDIA NONSPECIFIC ST & T-WAVE ABNORMALITY BORDERLINE ECG PREVIOUS TRACING : 03/11/2017 06.48 Compared to previous tracing, heart rate has slowed, septal T wave inversion is no longer evident. DOCTOR: Obie Lopez Interpretating Date/Time 12/14/2017 20:57:20
== END 2017-12-14 12:58 | disposition home or self-care (01) ==
LOC: NEPE 09:15
DX: R10.13 Epigastric pain (principal); R11.2 Nausea with vomiting, unspecified; R61 Generalized hyperhidrosis; R94.31 Abnormal electrocardiogram [ECG] [EKG]; I10 Essential (primary) hypertension; K21.9 Gastro-esophageal reflux disease without esophagitis; Z86.2 Personal history of diseases of the blood and blood-forming organs and certain disorders involving the immune mechanism; Z87.39 Personal history of other diseases of the musculoskeletal system and connective tissue; Z87.09 Personal history of other diseases of the respiratory system
CPT/HCPCS: 74177; 80053; 81001; 83605; 83690; 85025; 93005; 96361; 96374; 96375; 99285; J2270; J2405; J7030; Q9967